=== PATIENT | female | born 1965 | race American Indian/Alaskan Native ===

== ENCOUNTER 2017-05-17 21:27 | Emergency (ER) | payer OTHER ==
[2017-05-17 21:30] VITALS: BMI 29.9
--- NOTE | 2017-05-17 21:39 | ED PDOC ---
Arrival/HPI - General Time Seen by Provider: 05/17/17 21:30 Historian: Patient - History of Present Illness Narrative History of Present Illness (Text): 05/17/17 21:36 A 51 year old female/male, whose past medical history includes lupus and MS, presents to the emergency department complaining of dizziness and weakness. Patient reports dizziness as room-spinning sensation. Notes also experiencing sharp head pain "popping" sensation. Patient denies any vomiting, or any other complaints. Also, patient mentions not having taken any medications for dizziness. No PMD Past Medical History - Provider Review Nursing Documentation Reviewed: Yes Family/Social History - Physician Review Nursing Documentation Reviewed: Yes Family/Social History: No Known Family HX Allergies/Home Meds Allergies/Adverse Reactions: Allergies No Known Allergies Allergy (Verified 05/17/17 21:40) Home Medications: Home Meds Medication Instructions Recorded Confirmed Hydroxychloroquine Sulfate 200 mg PO BID 05/17/17 05/17/17 [Plaquenil] Pantoprazole [Protonix] 40 mg PO DAILY 05/17/17 05/17/17 Pregabalin [Lyrica] 200 mg PO BID 05/17/17 05/17/17 Valsartan/Hydrochlorothiazide 300 mg PO DAILY 05/17/17 05/17/17 [Diovan Hct 320-25 mg Tablet] tiZANidine [Zanaflex] 4 mg PO DAILY 05/17/17 05/17/17 Review of Systems - Physician Review All systems were reviewed & negative as marked: Yes - Review of Systems Constitutional: Fatigue, Other (weakness) Gastrointestinal: absent: Vomiting Musculoskeletal: Other (sharp head pain "popping" sensation) Neurological: Dizziness (room-spinning) Physical Exam Mental Status: Positive for: Alert and Oriented X 3 - Systems Exam Head: Present: Atraumatic, Normocephalic Pupils: Present: PERRL Extroacular Muscles: Present: EOMI, Other (left gaze, patient's symptoms of vertigo are reproduced.) Conjunctiva: Present: Normal Mouth: Present: Moist Mucous Membranes Neck: Present: Normal Range of Motion Respiratory/Chest: Present: Clear to Auscultation, Good Air Exchange. No: Respiratory Distress, Accessory Muscle Use Cardiovascular: Present: Regular Rate and Rhythm, Normal S1, S2. No: Murmurs Abdomen: Present: Normal Bowel Sounds. No: Tenderness, Distention, Peritoneal Signs Back: Present: Normal Inspection Upper Extremity: Present: Normal Inspection. No: Cyanosis, Edema Lower Extremity: Present: Normal Inspection, Other (relfexes equal b/l). No: Edema Neurological: Present: GCS=15, CN II-XII Intact, Speech Normal, Other (no focal deficits) Skin: Present: Warm, Dry, Normal Color. No: Rashes Psychiatric: Present: Alert, Oriented x 3, Normal Insight, Normal Concentration Medical Decision Making ED Course and Treatment: 05/17/17 21:39 Impression: 51 year old female with dizziness and weakness. Plan: -- Reassess and disposition Progress Notes: - Lab Interpretations Lab Results: 05/17/17 22:00 05/17/17 22:00 Lab Results 05/17/17 22:00: Sodium 143, Potassium 3.4 L, Chloride 108 H, Carbon Dioxide 23, Anion Gap 16, BUN 10, Creatinine 0.8, Est GFR ( Amer) > 60, Est GFR (Non- Af Amer) > 60, Random Glucose 118 H, Calcium 10.4, Total Bilirubin 0.7, AST 49 H , ALT 54, Alkaline Phosphatase 91, Total Protein 7.0, Albumin 4.1, Globulin 2.9 , Albumin/Globulin Ratio 1.4 05/17/17 22:00: WBC 8.2, RBC 4.32, Hgb 12.0, Hct 37.5, MCV 86.8, MCH 27.8, MCHC 32.0, RDW 13.2, Plt Count 276, MPV 11.8 H, Gran % 36.5 L, Lymph % (Auto) 52.1 H , [place] % (Auto) 5.6, Eos % (Auto) 4.7, Baso % (Auto) 1.1, Gran # 3.01, Lymph # ( Auto) 4.3 H, [place] # (Auto) 0.5, Eos # (Auto) 0.4, Baso # (Auto) 0.09 - Medication Orders Current Medication Orders: Potassium Chloride (Klor-Con 10) 10 meq PO STAT STA Stop: 05/17/17 22:35 Discontinued Medications Meclizine HCl (Antivert) 25 mg PO STAT STA Stop: 05/17/17 21:43 Last Admin: 05/17/17 21:47 Dose: 25 mg - Scribe Statement The provider has reviewed the documentation as recorded by the Elly Mota Provider Vernibe Attestation: All medical record entries made by the Elly were at my direction and personally dictated by me. I have reviewed the chart and agree that the record accurately reflects my personal performance of the history, physical exam, medical decision making, and the department course for this patient. I have also personally directed, reviewed, and agree with the discharge instructions and disposition. Disposition/Present on Arrival - Present on Arrival Any Indicators Present on Arrival: No History of DVT/PE: No History of Uncontrolled Diabetes: No Urinary Catheter: No History of Decub. Ulcer: No - Disposition Have Diagnosis and Disposition been Completed?: Yes Diagnosis: Vertigo, Multiple sclerosis Disposition: HOME/ ROUTINE Disposition Time: 22:45 Patient Plan: Discharge Condition: IMPROVED Prescriptions: Meclizine [Meclizine*] 25 mg PO Q6 PRN #20 tab PRN Reason: Dizziness Forms: [employer] ([place]), [employer] ([place]), WORK NOTE
[2017-05-17 22:21] LABS: BASO # 0.09 K/mm3 (0.0-2.0); BASO % 1.1 % (0.0-3.0); EOS # 0.4 (0.0-0.7); EOS % 4.7 % (1.5-5.0); GRAN # 3.01 (1.4-6.5); GRAN % 36.5 % (50.0-68.0); LYMPH # 4.3 (1.2-3.4); LYMPH % 52.1 % (22.0-35.0); MEAN CELL VOLUME 86.8 fl (80.0-105.0); MEAN CORPUSCULAR HEMOGLOBIN 27.8 pg (25.0-35.0); MEAN PLATELET VOLUME 11.8 fl (7.0-11.0); MONO # 0.5 (0.1-0.6); MONO % 5.6 % (1.0-6.0); RBC 4.32 10^6/uL (3.5-6.1); RED CELL DISTRIBUTION WIDTH 13.2 % (11.5-14.5); WHITE BLOOD COUNT 8.2 10^3/ul (4.5-11.0)
[2017-05-17 22:29] LABS: ALB/GLOB RATIO 1.4 (1.1-1.8); ALBUMIN 4.1 g/dL (3.0-4.8); ALT/SGPT 54 U/L (7-56); AST/SGOT 49 U/L (14-36); BLOOD UREA NITROGEN 10 mg/dL (7-21); CALCIUM 10.4 mg/dL (8.4-10.5); GFR AFRICAN-AMERICAN > 60; GFR NON-AFRICAN AMERICAN > 60
[2017-05-17] MEDS ORDERED: Potassium Chloride 10 mEq ER Tab PO STA (22:34)
[2017-05-17 23:28] VITALS: BP 120/86; PULSE 66; RESP 16; TEMP 98.1; O2SAT 99
== END 2017-05-17 23:00 | disposition home or self-care (01) ==
LOC: ED 21:27
DX: G35 Multiple sclerosis (principal); R42 Dizziness and giddiness

== ENCOUNTER 2017-10-01 15:52 | Inpatient (IN) | payer OTHER ==
[2017-10-01 16:22] VITALS: BMI 26.8
[2017-10-01] MEDS ORDERED: Sodium Chloride 0.9% 1,000 ML IV STA (16:29)
[2017-10-01] MEDS ORDERED: Morphine 2 mg/ml ISec IVP STA (16:29)
[2017-10-01] MEDS ORDERED: Famotidine 20mg/50ml 20 MG/50 ML BAG IVPB STA (16:29)
--- NOTE | 2017-10-01 16:32 | ED PDOC ---
Arrival/HPI - General Chief Complaint: Pain, Chronic Time Seen by Provider: 10/01/17 16:00 Historian: Patient - History of Present Illness Narrative History of Present Illness (Text): 10/01/17 16:26 51 year old female, whose past medical history includes MS/lupus, who presents to the emergency department complaining of gradually, worsening joint/body aches and pain since this morning. Patient notes severe abdominal cramps as well and experienced 6 episodes of vomiting with persistent nausea. Patient had visited Dr. Moss's office for evaluation and was subsequently sent to the [place] emergency department for further eval/exam today. pt does not know if the pain she is currently experiencing is from Lupus flare or MS exacerbation as they are somewhat similiar; pt's last exacerbation was 2 years ago; pt states no fever/chills, + sweats, no cp/sob/palpitations, pt denied urinary/ bowel changes, no rashes, no fall/trauma/sick contact, no travel; pt denied LOC ; pt is here for further eval; pt's without other complaints. Patient receives 1000mg SOLU-Medrol injections every two months for patient's lupus prescribed from Dr. Flores ? from [place]. Patient has not taken MS medication for a year due to insurance issues. pt is here for further eval. PMD: Isa Neurology: Dr. Cruz Rheumatology: Dr Flores? (at [place]) pt lives with family Patient is right hand dominant Time/Duration: Prior to Arrival, Other (since this morning) Symptom Onset: Gradual Symptom Course: Worsening Severity Level: 10, Severe Activities at Onset: Light Context: Home Past Medical History - Provider Review Nursing Documentation Reviewed: Yes - Travel History Have you recently traveled outside [place] w/in the past 3 mons?: No - Past History Past History: Non-Contributing - Infectious Disease Hx of Infectious Diseases: None - Reproductive Currently : No - Cardiac Hx Hypertension: Yes - Neurological Hx Dizziness: Yes Hx Multiple Sclerosis: Yes - Endocrine/Metabolic Hx Systemic Lupus Erythematosus: Yes - Musculoskeletal/Rheumatological Hx Osteoarthritis: Yes - Psychiatric Hx Substance Use: No - Surgical History Hx Tubal Ligation: Yes - Anesthesia Hx Anesthesia: No Hx Anesthesia Reactions: No Hx Malignant Hyperthermia: No Family/Social History - Physician Review Nursing Documentation Reviewed: Yes Family/Social History: Unknown Family HX Smoking Status: Heavy Smoker > 10 Cigarettes Daily Hx Alcohol Use: No Hx Substance Use: No Hx Substance Use Treatment: No Allergies/Home Meds Allergies/Adverse Reactions: Allergies No Known Allergies Allergy (Verified 10/01/17 16:27) Home Medications: Home Meds Medication Instructions Recorded Confirmed Hydroxychloroquine Sulfate 200 mg PO BID 05/17/17 05/17/17 [Plaquenil] Pantoprazole [Protonix] 40 mg PO DAILY 05/17/17 05/17/17 Pregabalin [Lyrica] 200 mg PO BID 05/17/17 05/17/17 Valsartan/Hydrochlorothiazide 300 mg PO DAILY 05/17/17 05/17/17 [Diovan Hct 320-25 mg Tablet] tiZANidine [Zanaflex] 4 mg PO DAILY 05/17/17 05/17/17 Review of Systems - Physician Review All systems were reviewed & negative as marked: Yes - Review of Systems Constitutional: Normal Eyes: Normal ENT: Normal Respiratory: Normal. absent: SOB, Cough Cardiovascular: Normal. absent: Chest Pain Gastrointestinal: Abdominal Pain, Vomiting. absent: Diarrhea Genitourinary Female: Normal, Vaginal Discharge. absent: Dysuria, Frequency Musculoskeletal: Arthralgias, Other (body aches) Skin: Normal. absent: Rash Neurological: Normal. absent: Headache, Dizziness Endocrine: Normal Hemo/Lymphatic: Normal Psychiatric: Normal Physical Exam - Physical Exam Narrative Physical Exam (Text): 10/01/17 16:33 General: alert/awake, GCS = 15, oriented x 3, resting in bed, uncomfortable, cooperative, interactive; moderate distress due to pain Head: NC/AT EYE: PERRLA, EOMI, sclera anicteric, no nystagmus, no photophobia; visual field intact b/l Facial: WNL Oral: uvula/tongue are midline, no exudate/lesions, no drooling/stridor, no dysphonia; intact dentitions; moist oral mucosa NECK: intact ROM, no midline tenderness, no nuchal rigidity, no meningeal signs ; no step off Chest: CTA b/l, no w/r/r; no tachypenia, no accessory muscle use noted Chest Wall: no crepitus, no lesions, no gross deformities, no focal tenderness Cardiac: +S1, +S2, no m/r/r, no tachycardia Abdominal: +BS, soft/nd/nt, well nourished patient; no masses/rebound/guarding/ rigidity; no ordoñez's sign, no mcburney's point tenderness Extremities: intact ROM, strength 5/5 grossly intact in all limbs, neurovasc intact b/l; reflex +2/2; no rupert's sign b/l; no pitting edema/leg swellings noted; diffuse large-joint palpable/reproducible tenderness, no crepitus, no gross deformities noted BACK: no step off, no midline tenderness, NO crepitus, no gross deformities noted; Intact ROM SKIN: cap refill < 1 sec, no ulcerations, no petechiae, no rashes; no gross pallor NEURO: CNII-XII WNL, no facial asymmetries, no slurr speech, oriented x 3 NIH stroke scale ~ 0 Psych: normal insight, normal affect; follows command with ease Vital Signs Reviewed: Yes Vital Signs Temp Pulse Resp BP Pulse Ox 10/01/17 18:00 79 18 148/78 98 10/01/17 16:21 98.6 F 84 18 152/82 H 98 Temperature: Afebrile Blood Pressure: Hypertensive Pulse: Regular Respiratory Rate: Normal Appearance: Positive for: Well-Appearing, Non-Toxic, Uncomfortable Pain Distress: Moderate Mental Status: Positive for: Alert and Oriented X 3 - Systems Exam Head: Present: Atraumatic, Normocephalic Medical Decision Making ED Course and Treatment: 10/01/17 16:35 Impression: 51 year old male presents to the emergency department complaining of joint/ body aches and pain since this morning. likely exacerbation (MS vs Lupus, or combination of the 2); unlikely infectious Plan: -- VBG -- Labs -- Chest X-ray -- EKG -- Urinalysis -- Toradol -- Morphine -- Zofran -- Pepcid -- Sodoium Chloride -- Reassess and disposition Progress Notes: 10/01/17 16:[address] Cruz, made aware of pt's medical complaints and Emergency department mgt/txt/dx. Suggests administering 1 gram of SOLU-Medrol to pt and re-evaluate pt after medication. If pt's symptoms improve, pt can follow up as outpatient. If pt's symptoms remain the same or worsen, hospitalization/treatment/monitor will be needed/recommended. 10/01/17 18:45 Pt continues to have discomfort and pain throughout. Pt states she requires further pain control. 10/01/17 18:[address] Moss, made aware of pt's medical complaints, suggests that patient may be narcotic dependent; States if pt were to leave as she wants to, pt will be leaving AMA, he will then see pt in his office in 2 days for follow up. 10/01/17 18:57 Pt states she changed her mind and does not want to sign out AMA. Pt states she would prefer to stay in the hospital. Pt continues to have diffuse joint/body aches and pains. 10/01/17 19:[address] Moss again, made aware, agrees with admission 10/01/17 19:49 Case discussed with medical chief technician for Dr. Moss, who is made aware and will evaluate patient in the Emergency department pt is made aware of her medical results agrees with admission Re-evaluation Time: 19:30 Reassessment Condition: Unchanged - Lab Interpretations Lab Results: 10/01/17 17:15 10/01/17 17:30 Lab Results 10/01/17 17:30: C-React Prot High Sens Pending, TSH 3rd Generation 0.93 10/01/17 17:30: Sodium 144, Chloride 106, Potassium 3.8, Carbon Dioxide 27, Anion Gap 15, BUN 11, Creatinine 0.6 L, Est GFR ( Amer) > 60, Est GFR ( Non-Af Amer) > 60, Random Glucose 88, Calcium 10.0, Phosphorus 4.0, Magnesium 2.1, Total Bilirubin 0.5, AST 27, ALT 28, Alkaline Phosphatase 117, Troponin I < 0.01, NT-Pro-B Natriuret Pep 37.6, Total Protein 7.1, Albumin 4.1, Globulin 3.0, Albumin/Globulin Ratio 1.4, Lipase 42 10/01/17 17:30: pO2 69 H, VBG pH 7.38, VBG pCO2 46.0, VBG HCO3 27.2, VBG Total CO2 28.6 H, VBG O2 Sat (Calc) 96.5 H, VBG Base Excess 1.5, VBG Potassium 4.2, Sodium 140.0, Chloride 108.0 H, Glucose 86, Lactate 1.0, FiO2 21.0, Venous Blood Potassium 4.2 10/01/17 17:30: PT 12.6 H, INR 1.10 H, APTT 33.4 10/01/17 17:15: WBC 8.9, RBC 4.31, Hgb 12.1, Hct 36.8, MCV 85.4, MCH 28.1, MCHC 32.9, RDW 13.2, Plt Count 285, MPV 12.7 H, Gran % 54.5, Lymph % (Auto) 36.3 H, [place] % (Auto) 6.7 H, Eos % (Auto) 1.9, Baso % (Auto) 0.6, Gran # 4.83, Lymph # ( Auto) 3.2, [place] # (Auto) 0.6, Eos # (Auto) 0.2, Baso # (Auto) 0.05, ESR 10 I have reviewed the lab results: Yes Interpretation: All labs normal - RAD Interpretation Narrative RAD Interpretations (Text): 10/01/17 17:45 Chest X-ray reviewed, shows: LUNGS: No active pulmonary disease. PLEURA: No significant pleural effusion identified, no pneumothorax apparent. CARDIOVASCULAR: Normal. OSSEOUS STRUCTURES: No significant abnormalities. VISUALIZED UPPER ABDOMEN: Normal. OTHER FINDINGS: None. IMPRESSION: No acute cardiopulmonary disease appreciated. Radiology Orders: 10/01/17 16:27 CHEST PORTABLE [RAD] Stat Tube Mounter: Radiologist - EKG Interpretation EKG Interpretation (Text): 10/01/17 21:03 NSR at 85 bpm, normal axis, no ectopy, no st-t changes, BORDERLINE EKG; unchanged compare with old ekg 05/2017 Interpreted by ED Physician: Yes Type: 12 lead EKG Comparison: Similar to previous EKG - Medication Orders Current Medication Orders: Docusate Sodium (Colace) 100 mg PO TID YARY Enoxaparin Sodium (Lovenox) 30 mg SC DAILY YARY PRN Reason: Protocol Hydrochlorothiazide (Hydrodiuril) 25 mg PO DAILY YARY Hydroxychloroquine Sulfate (Plaquenil) 200 mg PO BID YARY PRN Reason: Protocol Sodium Chloride (Sodium Chloride 0.45%) 1,000 mls @ 80 mls/hr IV .[id number] YARY Ondansetron HCl (Zofran Inj) 4 mg IVP Q6 PRN PRN Reason: Nausea/Vomiting Pantoprazole Sodium (Protonix Inj) 40 mg IVP DAILY YARY Polyethylene Glycol (Miralax) 17 gm PO Q12 YARY Pregabalin (Lyrica) 200 mg PO BID YARY Valsartan (Diovan) 320 mg PO DAILY YARY Discontinued Medications Hydromorphone HCl (Dilaudid) 1 mg IVP STAT STA Stop: 10/01/17 18:50 Last Admin: 10/01/17 19:01 Dose: 1 mg MAR Pain Assessment Document 10/01/17 19:01 EQ (Rec: 10/01/17 19:02 EQ [facility] Pain Reassessment Is this a pain reassessment? Yes Sleep Is patient sleeping during reassessment? No Presence of Pain Presence of Pain Yes Pain Scale Used Pain Scale Used Numeric IVP Administration Document 10/01/17 19:01 EQ (Rec: 10/01/17 19:02 EQ [facility] Charges for Administration # of IVP Administrations 1 Famotidine (Pepcid 20mg/50ml Premix) 20 mg in 50 mls @ 100 mls/hr IVPB STAT STA Stop: 10/01/17 16:58 Last Admin: 10/01/17 16:50 Dose: 100 mls/hr eMAR Start Stop Document 10/01/17 16:50 EQ (Rec: 10/01/17 16:50 EQ [facility] Intravenous Solution Start Date 10/01/17 Start Time 16:50 Sodium Chloride (Sodium Chloride 0.9%) 1,000 mls @ 999 mls/hr IV .Q1H1M STA Stop: 10/01/17 17:29 Last Admin: 10/01/17 16:49 Dose: 999 mls/hr eMAR Start Stop Document 10/01/17 16:49 EQ (Rec: 10/01/17 16:49 EQ [facility] Intravenous Solution Start Date 10/01/17 Start Time 16:49 Methylprednisolone 1,000 mg/ (Sodium Chloride) 100 mls @ 200 mls/hr IVPB ONCE ONE Stop: 10/01/17 16:42 Last Admin: 10/01/17 18:05 Dose: 200 mls/hr eMAR Start Stop Document 10/01/17 18:05 EQ (Rec: 10/01/17 18:05 EQ [facility] Intravenous Solution Start Date 10/01/17 Start Time 18:05 Ketorolac Tromethamine (Toradol) 30 mg IVP STAT STA Stop: 10/01/17 16:30 Last Admin: 10/01/17 16:50 Dose: 30 mg MAR Pain Assessment Document 10/01/17 16:50 EQ (Rec: 10/01/17 16:50 EQ [facility] Pain Reassessment Is this a pain reassessment? No Sleep Is patient sleeping during reassessment? No Presence of Pain Presence of Pain Yes IVP Administration Document 10/01/17 16:50 EQ (Rec: 10/01/17 16:50 EQ [facility] Charges for Administration # of IVP Administrations 1 Morphine Sulfate (Morphine) 4 mg IVP STAT STA Stop: 10/01/17 16:30 Last Admin: 10/01/17 16:51 Dose: 4 mg MAR Pain Assessment Document 10/01/17 16:51 EQ (Rec: 10/01/17 16:51 EQ [facility] Pain Reassessment Is this a pain reassessment? No Sleep Is patient sleeping during reassessment? No Presence of Pain Presence of Pain Yes Pain Scale Used Pain Scale Used Numeric IVP Administration Document 10/01/17 16:51 EQ (Rec: 10/01/17 16:51 EQ [facility] Charges for Administration # of IVP Administrations 1 Ondansetron HCl (Zofran Inj) 4 mg IVP STAT STA Stop: 10/01/17 16:30 Last Admin: 10/01/17 16:51 Dose: 4 mg IVP Administration Document 10/01/17 16:51 EQ (Rec: 10/01/17 16:51 EQ [facility] Charges for Administration # of IVP Administrations 1 - Scribe Statement The provider has reviewed the documentation as recorded by the Scribmelissa Gómez All medical record entries made by the Scribe were at my direction and personally dictated by me. I have reviewed the chart and agree that the record accurately reflects my personal performance of the history, physical exam, medical decision making, and the department course for this patient. I have also personally directed, reviewed, and agree with the discharge instructions and disposition. Disposition/Present on Arrival - Present on Arrival Any Indicators Present on Arrival: No History of DVT/PE: No History of Uncontrolled Diabetes: No Urinary Catheter: No History of Decub. Ulcer: No History Surgical Site Infection Following: None - Disposition Have Diagnosis and Disposition been Completed?: Yes Diagnosis: Joint pain, Intractable pain, Exacerbation of multiple sclerosis Disposition: HOSPITALIZED Disposition Time: 19:55 Patient Plan: Admission Condition: STABLE
--- NOTE | 2017-10-01 17:39 | RAD ---
HISTORY: weakness COMPARISON: No prior. FINDINGS: LUNGS: No active pulmonary disease. PLEURA: No significant pleural effusion identified, no pneumothorax apparent. CARDIOVASCULAR: Normal. OSSEOUS STRUCTURES: No significant abnormalities. VISUALIZED UPPER ABDOMEN: Normal. OTHER FINDINGS: None. IMPRESSION: No acute cardiopulmonary disease appreciated.
[2017-10-01 17:53] LABS: VENOUS BLOOD GAS BASE EXCESS 1.5 mmol/L (0.0-2.0); VENOUS BLOOD GAS PO2 69 mm/Hg (30-55); VENOUS BLOOD PH 7.38 (7.32-7.43)
[2017-10-01 17:57] LABS: BASO # 0.05 K/mm3 (0.0-2.0); BASO % 0.6 % (0.0-3.0); EOS # 0.2 (0.0-0.7); EOS % 1.9 % (1.5-5.0); GRAN # 4.83 (1.4-6.5); GRAN % 54.5 % (50.0-68.0); HEMOGLOBIN 12.1 g/dL (12.0-16.0); LYMPH # 3.2 (1.2-3.4); LYMPH % 36.3 % (22.0-35.0); MEAN CELL VOLUME 85.4 fl (80.0-105.0); MEAN CORPUSCULAR HEMOGLOBIN 28.1 pg (25.0-35.0); MEAN CORPUSCULAR HGB CONC 32.9 g/dl (31.0-37.0); MEAN PLATELET VOLUME 12.7 fl (7.0-11.0); MONO # 0.6 (0.1-0.6); MONO % 6.7 % (1.0-6.0); RBC 4.31 10^6/uL (3.5-6.1); RED CELL DISTRIBUTION WIDTH 13.2 % (11.5-14.5); WHITE BLOOD COUNT 8.9 10^3/ul (4.5-11.0)
[2017-10-01 18:02] LABS: ALB/GLOB RATIO 1.4 (1.1-1.8); ALBUMIN 4.1 g/dL (3.0-4.8); ALT/SGPT 28 U/L (7-56); AST/SGOT 27 U/L (14-36); BLOOD UREA NITROGEN 11 mg/dL (7-21); GFR AFRICAN-AMERICAN > 60; GFR NON-AFRICAN AMERICAN > 60; LIPASE 42 U/L (23-300)
[2017-10-01 18:13] LABS: B-TYPE NATRIURETIC PEPTIDE 37.6 pg/mL (0-450); TROPONIN I < 0.01 ng/mL
[2017-10-01 18:23] LABS: INR 1.1 (0.93-1.08); PARTIAL THROMBOPLASTIN TIME 33.4 Seconds (25.1-36.5); PROTHROMBIN TIME 12.6 SECONDS (9.4-12.5)
[2017-10-01] MEDS ORDERED: HYDROmorphone 0.5 mg/0.5 ml ISec IVP STA (18:49)
--- NOTE | 2017-10-01 21:04 | CP.PCM.HP ---
History of Present Illness - History of Present Illness History of Present Illness: 51 year old female with a past medical history of Multiple sclerosis, hypertension, osteopenia, and hypertension who comes in today complaining of myalgias, spasms and six episodes of vomiting for the past day. The patient describes the pain in her muscles as throbbing in nature that is consistent. The patient reports going to her PMD Dr. Moss earlier today who recommended she be transferred to the emergency room for further workup. The patient's last Lupus flare up was 2 years ago. She denies any chest pain, fevers, chills , changes in vision, dizziness, syncopal episodes, changes in diet, recent travel, or any other complaints. PMD: Dr. Moss Neurologist: Dr. Cruz Systems Librarian: Dr. Boggs Past medical history: hypertension, MS, Lupus, hypertension, osteopenia Medications: Plaquenil 200mg BID, Lyrica 200mg BID, Norvasc 10mg PO Daily, Diovan 320 mg Daily Allergies: Denies Surgical history: Tubal ligation, uterine ablation, removal right ovarian cyst Social history: Denies smoking, drinking, or illicit drug use. Live in [place]. Works at [employer]. Present on Admission - Present on Admission Any Indicators Present on Admission: No Review of Systems - Constitutional Constitutional: absent: Daytime Sleepiness, Headache, Increased Appetite, Sleep Apnea, Weight Gain - EENT Eyes: Blurred Vision. absent: Discharge, Loss of Peripheral Vision, Sees Flashes, Loss of Vision Ears: absent: Ear Discharge, Dizziness Nose/Mouth/Throat: absent: Nasal Congestion, Post Nasal Drip, Dental Pain, Mouth Lesions, Throat Swelling - Cardiovascular Cardiovascular: absent: Chest Pain, Diaphoresis, Irregular Heart Rhythm, Leg Edema, Leg Ulcers, Slow Heart Rate - Respiratory Respiratory: absent: Cough, Dyspnea, Hemoptysis, Pain on Inspiration, Excessive Mucous Production, Change in Mucous Color - Gastrointestinal Gastrointestinal: Nausea, Vomiting. absent: Belching, Bloating, Excessive Flatus, Hematemesis, Temesmus - Musculoskeletal Musculoskeletal: Arthralgias, Muscle Cramps, Myalgias. absent: Abnormal Gait, Atrophy, Back Pain, Limited Range of Motion, Neck Pain, Numbness - Integumentary Integumentary: absent: Alopecia, Bleeding Lesions, Skin Pain - Neurological Neurological: absent: Abnormal Hearing, Burning Sensations, Dizziness, Numbness , Lack of Coordination, Restless Legs, Vertigo, Weakness - Psychiatric Psychiatric: absent: Panic Attacks, Paranoia - Hematologic/Lymphatic Hematologic: absent: Easy Bleeding, Easy Bruising Past Patient History - Infectious Disease Hx of Infectious Diseases: None - Past Social History Smoking Status: Heavy Smoker > 10 Cigarettes Daily - CARDIAC Hx Hypertension: Yes - NEUROLOGICAL Hx Dizziness: Yes Hx Multiple Sclerosis: Yes - ENDOCRINE/METABOLIC Hx Systemic Lupus Erythematosus: Yes - MUSCULOSKELETAL/RHEUMATOLOGICAL Hx Osteoarthritis: Yes - PSYCHIATRIC Hx Substance Use: No - SURGICAL HISTORY Hx Tubal Ligation: Yes - ANESTHESIA Hx Anesthesia: No Hx Anesthesia Reactions: No Hx Malignant Hyperthermia: No Meds Allergies/Adverse Reactions: Allergies Allergy/AdvReac Type Severity Reaction Status Date / Time No Known Allergies Allergy Verified 10/01/17 23:34 Physical Exam - Head Exam Head Exam: ATRAUMATIC, NORMAL INSPECTION, NORMOCEPHALIC - Eye Exam Eye Exam: EOMI, Normal appearance, PERRL. absent: Nystagmus, Periorbital tenderness Pupil Exam: NORMAL ACCOMODATION, PERRL - ENT Exam ENT Exam: Mucous Membranes Moist, Normal Oropharynx - Respiratory Exam Respiratory Exam: Clear to Auscultation Bilateral, NORMAL BREATHING PATTERN. absent: Decreased Breath Sounds, Rales, Rhonchi - Cardiovascular Exam Cardiovascular Exam: REGULAR RHYTHM, +S1, +S2 - GI/Abdominal Exam GI & Abdominal Exam: Normal Bowel Sounds, Soft - Extremities Exam Extremities exam: Positive for: normal inspection, tenderness. Negative for: joint swelling, pedal edema Additional comments: Motor strength 5/5 in lower extremities. Motor stregth 4/5 on right upper extremity. 5/5 on left upper extremity. - Back Exam Back exam: NORMAL INSPECTION. absent: paraspinal tenderness - Neurological Exam Neurological exam: Alert, CN II-XII Intact, Oriented x3 - Psychiatric Exam Psychiatric exam: Normal Affect, Normal Mood - Skin Skin Exam: Dry, Intact, Normal Color Results - Vital Signs Recent Vital Signs: Last Vital Signs Temp 98.6 F 10/01/17 16:21 Pulse 79 10/01/17 18:00 Resp 18 10/01/17 18:00 BP 148/78 10/01/17 18:00 Pulse Ox 98 10/01/17 18:00 - Labs Result Diagrams: 10/01/17 17:15 10/01/17 17:30 Assessment & Plan - Assessment and Plan (Free Text) Assessment: 51 year old female with a history of ms, lupus, hypertension and ostopenia who is being admitted for MS exacerbation. Plan: 1.MS exacerbation -1 gram of IV Solu-medrol given in the E.D. -Neurology consulted. Help appreciated -Home medications restarted. 2. Vomiting/nausea -IV Zofran started. 3. Myalgias -Negative Lemus sign on Physical exam -Duplex l/e ordered. Will f/u with results -STAT CPK ordered .Will f/u with results -Outo of bed as tolerated. -Physical Therapy consulted. -1/2 NS @80mls/hr 4.hx of Lupus -home medications restarted 5. hx of Hypertension -home medications restarted PPX -Protonix -Lovenox Case discussed with Dr. Moss. Ramin Rayo, PGY-1
--- NOTE | 2017-10-01 22:01 | CARD ---
APPROVED REPORT EKG Measurement Heart [id number] <Conclusion> Normal sinus rhythm Normal ECG
[2017-10-01] MEDS: Sodium Chloride 0.45% 1,000 ML IV SCH (22:12)
[2017-10-01] MEDS: POLYETHYLENE GLYCOL 3350 17 GM/Dose PACKET PO SCH (23:30)
[2017-10-01] MEDS ORDERED: Morphine 2 mg/2 mL syringe IVP STA (23:48)
[2017-10-02 06:27] LABS: BASO # 0.01 K/mm3 (0.0-2.0); BASO % 0.2 % (0.0-3.0); GRAN # 3.9 (1.4-6.5); GRAN % 84.8 % (50.0-68.0); HEMOGLOBIN 11.2 g/dL (12.0-16.0); LYMPH # 0.7 (1.2-3.4); LYMPH % 14.6 % (22.0-35.0); MEAN CORPUSCULAR HEMOGLOBIN 27.5 pg (25.0-35.0); MEAN CORPUSCULAR HGB CONC 32.4 g/dl (31.0-37.0); MEAN PLATELET VOLUME 10.8 fl (7.0-11.0); MONO % 0.4 % (1.0-6.0); RBC 4.07 10^6/uL (3.5-6.1); RED CELL DISTRIBUTION WIDTH 13.1 % (11.5-14.5); WHITE BLOOD COUNT 4.6 10^3/ul (4.5-11.0)
[2017-10-02 07:26] LABS: ALB/GLOB RATIO 1.3 (1.1-1.8); ALBUMIN 3.7 g/dL (3.0-4.8); ALT/SGPT 20 U/L (7-56); AST/SGOT 19 U/L (14-36); BILIRUBIN,DIRECT 0.3 mg/dL (0.0-0.4); BLOOD UREA NITROGEN 13 mg/dL (7-21); CALCIUM 9.4 mg/dL (8.4-10.5); GFR AFRICAN-AMERICAN > 60; GFR NON-AFRICAN AMERICAN > 60
--- NOTE | 2017-10-02 07:47 | CP.PCM.PN ---
Subjective - Date & Time of Evaluation Date of Evaluation: 10/02/17 Time of Evaluation: 07:42 - Subjective Subjective: Patient seen and examined at bedside. Patient admits to improvement in pain symptoms from previous day. Patient states she is at baseline at this time. Denies chest pain, shortness of breath, nausea, vomiting, diarrhea, fever, changes in vision, numbness, weakness. Objective - Vital Signs/Intake and Output Vital Signs (last 24 hours): Temp Pulse Resp BP Pulse Ox 98.2 F 75 18 138/72 100 10/01/17 23:44 10/01/17 23:44 10/01/17 23:44 10/01/17 23:44 10/01/17 23:00 Intake and Output: 10/02/17 10/02/17 06:59 18:59 Intake Total 360 Balance 360 - Medications Medications: Current Medications Docusate Sodium (Colace) 100 mg PO TID [facility] Enoxaparin Sodium (Lovenox) 30 mg SC DAILY [facility] PRN Reason: Protocol Hydroxychloroquine Sulfate (Plaquenil) 200 mg PO BID [facility] PRN Reason: Protocol Sodium Chloride (Sodium Chloride 0.45%) 1,000 mls @ 80 mls/hr IV .[id number] [facility] Last Admin: 10/01/17 22:12 Dose: 80 mls/hr Ondansetron HCl (Zofran Inj) 4 mg IVP Q4H PRN PRN Reason: Nausea/Vomiting Pantoprazole Sodium (Protonix Inj) 40 mg IVP DAILY [facility] Polyethylene Glycol (Miralax) 17 gm PO Q12 [facility] Last Admin: 10/01/17 23:30 Dose: 17 gm Pregabalin (Lyrica) 200 mg PO BID [facility] Tizanidine HCl (Zanaflex) 4 mg PO DAILY [facility] Valsartan (Diovan) 320 mg PO DAILY [facility] - Labs Labs: 10/02/17 06:00 10/02/17 06:00 PT 12.6 SECONDS (9.4-12.5) H 10/01/17 17:30 INR 1.10 (0.93-1.08) H 10/01/17 17:30 APTT 33.4 Seconds (25.1-36.5) 10/01/17 17:30 - Constitutional Appears: Non-toxic, No Acute Distress - Head Exam Head Exam: ATRAUMATIC, NORMAL INSPECTION, NORMOCEPHALIC - Eye Exam Eye Exam: EOMI, Normal appearance - ENT Exam ENT Exam: Mucous Membranes Moist, Normal Exam - Respiratory Exam Respiratory Exam: Clear to Ausculation Bilateral, NORMAL BREATHING PATTERN - Cardiovascular Exam Cardiovascular Exam: RRR, +S1, +S2 - GI/Abdominal Exam GI & Abdominal Exam: Soft, Normal Bowel Sounds. absent: Tenderness - Extremities Exam Extremities Exam: Normal Inspection. absent: Calf Tenderness, Pedal Edema - Neurological Exam Neurological Exam: Alert, Awake, CN II-XII Intact, Oriented x3 - Psychiatric Exam Psychiatric exam: Normal Affect, Normal Mood - Skin Skin Exam: Intact, Normal Color, Warm Assessment and Plan - Assessment and Plan (Free Text) Plan: 51 year old female with a history of ms, lupus, hypertension and osteopenia presents for MS exacerbation. Patient doing well today after solumedrol, currently at baseline. 1.MS exacerbation Solumedrol 1 gram given yesterday, Additional dose given today 1/2 NS @ 80 Obstructive series Neuro consulted, Dr. Cruz 2. Arthralgias Pain intermittent, at baseline Physical Therapy 3.hx of Lupus Continue home medications 5. hx of Hypertension Continue home medications PPX Protonix Lovenox Fco, PGY-2
[2017-10-02] MEDS: Enoxaparin 30 mg Syringe SC SCH (09:15)
[2017-10-02] MEDS: POLYETHYLENE GLYCOL 3350 17 GM/Dose PACKET PO SCH ×2 (09:15→22:36)
--- NOTE | 2017-10-02 09:37 | US ---
HISTORY: Leg pain and swelling. Evaluate for DVT PHYSICIAN(S): Lenin Freire MD. TECHNIQUE: Duplex sonography and color-flow Doppler with graded compression were used to evaluate the deep venous systems of both lower extremities. FINDINGS: The visualized deep venous systems of both lower extremities are sonographically normal and compressible. Normal wave forms and augmentation are seen. There is no sonographic evidence for deep venous thrombosis in the visualized segments of both lower extremities. IMPRESSION: No sonographic evidence for deep venous thrombosis in the visualized segments of both lower extremities.
--- NOTE | 2017-10-02 13:08 | RAD ---
HISTORY: Possible bowel obstruction COMPARISON: No prior. FINDINGS: BOWEL: No evidence of acute mechanical bowel obstruction. . Moderate amount of stool seen within the cecum and at ascending colon suggesting mild fecal retention. Air is present throughout most of the colon as well. BONES: Mild degenerative spondylosis of both hip joints. OTHER FINDINGS: Note made of multiple rounded varying sized calcifications overlying the inferior true pelvis consistent with uterine fibroids. IMPRESSION: Moderate amount stool seen within the cecum ascending colon suggesting mild fecal retention. No evidence of acute mechanical bowel obstruction.
[2017-10-02 14:16] LABS: URINE BILIRUBIN NEGATIVE (NEGATIVE); URINE BLOOD NEGATIVE (NEGATIVE); URINE GLUCOSE (UA) 250 mg/dL (NEGATIVE); URINE LEUKOCYTE ESTERASE NEGATIVE Leu/uL (NEGATIVE); URINE PROTEIN NEGATIVE mg/dL (<30 mg/dL)
--- NOTE | 2017-10-02 14:16 | CP.PCM.PCO ---
Physician Communication Note - Physician Communication Note Physician Communication Note: MSWIHT LUPUS FLARE. ONE MORE DOSE OF IGRM SOLUMEDROL AND HOME.
[2017-10-02 14:18] LABS: URINE APPEARANCE CLEAR (CLEAR); URINE COLOR YELLOW (YELLOW)
[2017-10-02 14:45] LABS: BARBITURATES, UR NEGATIVE (NEGATIVE)
[2017-10-02 14:46] LABS: BENZODIAZEPINES, UR NEGATIVE (NEGATIVE); OPIATES, UR POSITIVE (NEGATIVE)
[2017-10-02 14:47] LABS: PHENCYCLIDINE, UR NEGATIVE (NEGATIVE)
--- NOTE | 2017-10-02 15:04 | HP ---
HISTORY OF PRESENT ILLNESS: The patient is a 51-year-old female who was admitted through the Emergency Room initially seen in the office for nausea, vomiting, abdominal discomfort and generalized body pain. The patient started feeling extremely sick in the office and the patient was sent to the Emergency Room because of the patient's medical condition being unstable and the patient was unable to control her nausea and vomiting and was sent to the Emergency Room. From there, the patient was admitted after the patient was evaluated in the emergency room and the ER physician contacted Neurology and according to Dr. Cruz's recommendation, the patient was advised to be admitted for IV steroid therapy for exacerbation of MS. This is the addendum to the history and physical examination which was done by the medical billing clerk. IMPRESSION AND PLAN: 1. Questionable and possible acute exacerbation of multiple sclerosis. 2. Questionable intractable nausea, vomiting (resolved) and abdominal pain. 3. History of hypertension. 4. History of systemic lupus erythematosus. 5. Neuropathy. 6. Chronic pain syndrome. 7. Mild normocytic anemia. 8. Hypovitaminosis D. 9. Hypogammaglobinemia. 10. Demyelinating disease of the brain and cervical spine. 11. History of multiple sclerosis. 12. History of tubal ligation. 13. History of osteopenia. 14. History of uterine ablation. 15. History of right ovarian cyst surgery. 16. Constipation. Please refer to the detailed history and physical examination by the medical billing clerk. The patient examined. Vital signs, diagnostic data reviewed and explained to the patient. PLAN: At this time, the patient is to be admitted to [facility] for IV steroid treatment as recommended by Neurology. The patient has been ordered serial labs. The patient has been ordered obstructive series for evaluation of constipation. Neurology consultation ordered. CURRENT MEDICATIONS: Half normal saline at 80 mL an hour, Colace 100 mg three times a day, Dilaudid 0.5 mg IV every 6 hours p.r.n., Diovan 320 mg daily, Lovenox 30 mg subcu daily, Lyrica 200 twice a day, MiraLax 17 g twice a day, Plaquenil 200 twice a day, Protonix 40 mg daily. The patient is on Solu-Medrol 1000 mg one dose yesterday, one dose today as ordered by Neurology, Zanaflex 4 mg daily, Zofran 4 mg IV every 4 hours p.r.n. Incentive spirometry. Heart-healthy diet. Neuro checks. Out of bed, DUANE stockings, SCDs, physical therapy, occupational therapy ordered.. At present, the patient is to be continued on the above therapeutic intervention until further evaluation and recommendation by Neurology. Dictated and electronically signed, not read. Jace Moss MD
[2017-10-02] MEDS: HYDROmorphone 0.5 mg/0.5 ml ISec IVP PRN ×2 (17:35→21:26)
[2017-10-02] MEDS: Sodium Chloride 0.45% 1,000 ML IV SCH ×2 (17:37→23:50)
[2017-10-03] MEDS: HYDROmorphone 0.5 mg/0.5 ml ISec IVP PRN ×3 (05:17→19:42)
--- NOTE | 2017-10-03 06:03 | CON ---
DATE: 10/02/2017 HISTORY OF PRESENT ILLNESS: A 51-year-old black female with past medical history of multiple sclerosis, hypertension and lupus, and came here with the complaint of spasm in the legs, myalgia and episode of vomiting, and patient describes her muscle pain as throbbing in nature, and also complain of numbness and tingling. Patient had flare up of lupus 2 years ago, and denies any visual problem. No dizziness. No syncope. PAST MEDICAL HISTORY: Hypertension, MS, lupus. ALLERGIES: NO KNOWN DRUG ALLERGIES. SOCIAL HISTORY: Does not smoke, does not drink. REVIEW OF SYSTEMS: A 10-point review of systems was negative except cramps and muscle pain, and vomiting. PHYSICAL EXAMINATION: HEENT: Normocephalic and atraumatic. NECK: Supple. NEUROLOGIC: Alert, awake, oriented x3. No aphasia. Cranial nerves II through XII were tested. Pupils reactive. EOM intact. Visual field full. No facial asymmetry. Tongue midline. Motor examination: Moves all the extremities equally. Tone normal. Deep tendon reflexes 1+. Both plantars are downgoing. Sensory appears intact. Cerebellar, gait deferred. LABORATORY DATA: WBC 8.9, hemoglobin 12.1, hematocrit 36.8, platelet 285. Sodium 144, potassium 3.8, chloride 106, CO2 of 27, glucose 88, BUN 11, creatinine 0.6. IMPRESSION: Multiple sclerosis possibly exacerbation, lupus, hypertension. We gave her a gram of Solu-Medrol, one was given in the emergency room, one for today and tomorrow. Continue present medication. We will follow up. Yoni Cruz MD
[2017-10-03 06:33] LABS: BASO # 0.01 K/mm3 (0.0-2.0); BASO % 0.1 % (0.0-3.0); GRAN # 10.82 (1.4-6.5); GRAN % 86.9 % (50.0-68.0); HEMOGLOBIN 9.9 g/dL (12.0-16.0); LYMPH # 1.1 (1.2-3.4); LYMPH % 8.8 % (22.0-35.0); MEAN CORPUSCULAR HEMOGLOBIN 27.3 pg (25.0-35.0); MEAN CORPUSCULAR HGB CONC 31.7 g/dl (31.0-37.0); MONO # 0.5 (0.1-0.6); MONO % 4.2 % (1.0-6.0); PLATELET COUNT 262 10^3/uL (120.0-450.0); RBC 3.63 10^6/uL (3.5-6.1); RED CELL DISTRIBUTION WIDTH 13.3 % (11.5-14.5); WHITE BLOOD COUNT 12.4 10^3/ul (4.5-11.0)
[2017-10-03 06:42] LABS: ALB/GLOB RATIO 1.3 (1.1-1.8); ALBUMIN 3.4 g/dL (3.0-4.8); ALT/SGPT 24 U/L (7-56); AST/SGOT 16 U/L (14-36); BILIRUBIN,DIRECT 0.1 mg/dL (0.0-0.4); BLOOD UREA NITROGEN 17 mg/dL (7-21); CALCIUM 9.1 mg/dL (8.4-10.5); GFR AFRICAN-AMERICAN > 60; GFR NON-AFRICAN AMERICAN > 60
[2017-10-03] MEDS: Pantoprazole 40 mg EC Tab PO SCH (08:17)
[2017-10-03] MEDS: POLYETHYLENE GLYCOL 3350 17 GM/Dose PACKET PO SCH (10:42)
[2017-10-03] MEDS: Enoxaparin 30 mg Syringe SC SCH (10:47)
[2017-10-03] MEDS: Sodium Chloride 0.45% 1,000 ML IV SCH (10:47)
--- NOTE | 2017-10-03 13:12 | PN ---
DATE: 10/03/2017 SUBJECTIVE: The patient is seen sitting up in room 573, bed 1. According to the patient, the had episode of heartburn this morning with reflux symptoms and the patient notified it to the patient's nurse, but the patient states that she did not like the attitude of the nurse and got upset. I have seen the patient with the nurse in charge of 5R. The patient was seen sitting up in the chair, in no discomfort or distress, watching TV. Appeared upset about the patient's nurse asking questions about her symptoms, which made the patient upset and dissatisfied. PHYSICAL EXAMINATION: VITAL SIGNS: T-max is afebrile; heart rate 82-78; blood pressure 128/74, 130/82; respirations 18-20, O2 sat is high 90%-100%. HEENT: Head examination normocephalic, atraumatic. HEENT examination shows pinkish conjunctivae. Anicteric sclerae. No oropharyngeal lesion. No neck rigidity. CHEST: Symmetrical. LUNGS: Shows no rales, crackles or wheezing. CARDIOVASCULAR: S1, S2. Regular rhythm. No audible murmur, gallop or rub. ABDOMEN: Slightly protuberant. Positive bowel sounds. GENITALIA: Female. RECTAL: Deferred. EXTREMITY: Shows no pitting edema, no calf tenderness, no Homans' sign. MUSCULOSKELETAL: Shows a body mass index noted. NEUROLOGIC: The patient is alert, awake, oriented x3. Cranial nerves II through XII grossly intact. Gait is independent. According to the patient's nurse, the patient has been ambulating independently. PSYCHIATRIC: Negative for anxiety, depression. Negative for suicidal or homicidal ideation. Negative for auditory or visual hallucinations. DIAGNOSTIC DATA: From 10/03/2017 reviewed. CBC, CMP, LFTs reviewed. Obstructive series from 10/02/2017 reviewed. The patient had fecal retention in ascending and transverse colon. The results of which were explained to the patient and updated to the patient. IMPRESSION AND PLAN: 1. Questionable exacerbation of multiple sclerosis versus questionable exacerbation of systemic lupus erythematosus. 2. Hypertension. 3. Questionable mood disorder. 4. History of hypertension. 5. Chronic pain syndrome. 6. Gastroesophageal reflux with symptoms of heartburn. 7. Constipation, fecal retention and fecal stasis in the ascending and the transverse colon. 8. Steroid-induced leukocytosis. 9. Questionable and possible gastritis. 10. Possible dilutional anemia. Plan at this time, the patient was seen by physical therapist and Victim Witness Administrator. The patient was recommended Transitional Care Unit by the physical therapist. We are still awaiting the patient's acceptance to Transitional Care Unit. Depending upon the patient's acceptance, the patient will be considered for discharge and transfer to Transitional Care Unit for further rehab management. The patient was extensively explained about the details of her medical condition. The patient was explained about the patient's complaints and issues from the morning with the patient's nurse was discussed and extensively explained to the patient at length with the nurse supervisor mail carriers for 5R present. I have advised the patient to address her complaints and issues to the appropriate authorities. The patient was updated about her clinical condition. Recommendation by Neurology was updated to the patient at length and all questions concerned answered. According to the patient's nurse, the patient initially wanted to go home and initially refused to receive today's dose of IV Solu-Medrol as ordered by the urologist. But later on, the patient changed her mind and agreed to stay for further therapy and possible transfer to TCU. Dictated and electronically signed, not read. Jace Moss MD
[2017-10-04] MEDS: POLYETHYLENE GLYCOL 3350 17 GM/Dose PACKET PO SCH ×2 (00:23→10:00)
[2017-10-04] MEDS: HYDROmorphone 0.5 mg/0.5 ml ISec IVP PRN ×2 (00:24→10:00)
[2017-10-04] MEDS: Pantoprazole 40 mg EC Tab PO SCH (08:03)
[2017-10-04 08:35] VITALS: BP 115/71; PULSE 63; RESP 18; TEMP 98; O2SAT 97
[2017-10-04] MEDS: Enoxaparin 30 mg Syringe SC SCH (10:00)
--- NOTE | 2017-10-05 23:04 | CP.PCM.DIS ---
Provider - Provider Date of Admission: 10/01/17 19:44 Attending physician: Jace Moss MD Primary care physician: Jace Moss MD Time Spent in preparation of Discharge (in minutes): 45 Hospital Course - Lab Results Lab Results: Most Recent Lab Values WBC 12.4 10^3/ul (4.5-11.0) H D 10/03/17 05:15 RBC 3.63 10^6/uL (3.5-6.1) 10/03/17 05:15 Hgb 9.9 g/dL (12.0-16.0) L 10/03/17 05:15 Hct 31.2 % (36.0-48.0) L 10/03/17 05:15 MCV 86.0 fl (80.0-105.0) 10/03/17 05:15 MCH 27.3 pg (25.0-35.0) 10/03/17 05:15 MCHC 31.7 g/dl (31.0-37.0) 10/03/17 05:15 RDW 13.3 % (11.5-14.5) 10/03/17 05:15 Plt Count 262 10^3/uL (120.0-450.0) 10/03/17 05:15 MPV 10.8 fl (7.0-11.0) 10/02/17 06:00 Gran % 86.9 % (50.0-68.0) H 10/03/17 05:15 Lymph % (Auto) 8.8 % (22.0-35.0) L 10/03/17 05:15 [place] % (Auto) 4.2 % (1.0-6.0) 10/03/17 05:15 Eos % (Auto) 0.0 % (1.5-5.0) L 10/03/17 05:15 Baso % (Auto) 0.1 % (0.0-3.0) 10/03/17 05:15 Gran # 10.82 (1.4-6.5) H 10/03/17 05:15 Lymph # (Auto) 1.1 (1.2-3.4) L 10/03/17 05:15 [place] # (Auto) 0.5 (0.1-0.6) 10/03/17 05:15 Eos # (Auto) 0.0 (0.0-0.7) 10/03/17 05:15 Baso # (Auto) 0.01 K/mm3 (0.0-2.0) 10/03/17 05:15 ESR 10 mm/hr (0.0-20.0) 10/01/17 17:15 PT 12.6 SECONDS (9.4-12.5) H 10/01/17 17:30 INR 1.10 (0.93-1.08) H 10/01/17 17:30 APTT 33.4 Seconds (25.1-36.5) 10/01/17 17:30 pO2 69 mm/Hg (30-55) H 10/01/17 17:30 VBG pH 7.38 (7.32-7.43) 10/01/17 17:30 VBG pCO2 46.0 (40-60) 10/01/17 17:30 VBG HCO3 27.2 mmol/l (21-28) 10/01/17 17:30 VBG Total CO2 28.6 mmol.L (22-28) H 10/01/17 17:30 VBG O2 Sat (Calc) 96.5 % (40-65) H 10/01/17 17:30 VBG Base Excess 1.5 mmol/L (0.0-2.0) 10/01/17 17:30 VBG Potassium 4.2 mmol/L (3.6-5.2) 10/01/17 17:30 Sodium 140.0 mmol/L (132-148) 10/01/17 17:30 Chloride 108.0 mmol/L (98-107) H 10/01/17 17:30 Glucose 86 mg/dl (65-105) 10/01/17 17:30 Lactate 1.0 mmol/L (0.7-2.1) 10/01/17 17:30 FiO2 21.0 % 10/01/17 17:30 Sodium 142 mmol/L (132-148) 10/03/17 05:15 Potassium 4.1 mmol/L (3.6-5.0) 10/03/17 05:15 Chloride 107 mmol/L (98-107) 10/03/17 05:15 Carbon Dioxide 25 mmol/L (21-33) 10/03/17 05:15 Anion Gap 13 (10-20) 10/03/17 05:15 BUN 17 mg/dL (7-21) 10/03/17 05:15 Creatinine 0.7 mg/dl (0.7-1.2) 10/03/17 05:15 Est GFR ( Amer) > 60 10/03/17 05:15 Est GFR (Non-Af Amer) > 60 10/03/17 05:15 Random Glucose 172 mg/dL (70-110) H 10/03/17 05:15 Calcium 9.1 mg/dL (8.4-10.5) 10/03/17 05:15 Phosphorus 4.0 mg/dL (2.5-4.5) 10/01/17 17:30 Magnesium 2.2 mg/dL (1.7-2.2) 10/03/17 05:15 Total Bilirubin 0.4 mg/dL (0.2-1.3) 10/03/17 05:15 Direct Bilirubin 0.1 mg/dL (0.0-0.4) 10/03/17 05:15 AST 16 U/L (14-36) 10/03/17 05:15 ALT 24 U/L (7-56) 10/03/17 05:15 Alkaline Phosphatase 82 U/L (38-126) 10/03/17 05:15 Total Creatine Kinase 119 U/L (35-230) 10/01/17 17:30 Troponin I < 0.01 ng/mL 10/01/17 17:30 C-React Prot High Sens 5.16 mg/L (1.00-3.00) H 10/01/17 17:30 NT-Pro-B Natriuret Pep 37.6 pg/mL (0-450) 10/01/17 17:30 Total Protein 6.1 g/dL (5.8-8.3) 10/03/17 05:15 Albumin 3.4 g/dL (3.0-4.8) 10/03/17 05:15 Globulin 2.7 gm/dL 10/03/17 05:15 Albumin/Globulin Ratio 1.3 (1.1-1.8) 10/03/17 05:15 Lipase 42 U/L (23-300) 10/01/17 17:30 TSH 3rd Generation 0.93 mIU/mL (0.46-4.68) 10/01/17 17:30 Beta HCG, Quant 4.99 mIU/mL (0-6.15) 10/01/17 17:30 Venous Blood Potassium 4.2 mmol/L (3.6-5.2) 10/01/17 17:30 Urine Color Yellow (YELLOW) 10/02/17 13:50 Urine Appearance Clear (CLEAR) 10/02/17 13:50 Urine pH 7.0 (4.7-8.0) 10/02/17 13:50 Ur Specific [place] 1.025 (1.005-1.035) 10/02/17 13:50 Urine Protein Negative mg/dL (<30 mg/dL) 10/02/17 13:50 Urine Glucose (UA) 250 mg/dL (NEGATIVE) H 10/02/17 13:50 Urine Ketones Negative mg/dL (NEGATIVE) 10/02/17 13:50 Urine Blood Negative (NEGATIVE) 10/02/17 13:50 Urine Nitrate Negative (NEGATIVE) 10/02/17 13:50 Urine Bilirubin Negative (NEGATIVE) 10/02/17 13:50 Urine Urobilinogen 1.0 E.U./dL (<1 E.U./dL) H 10/02/17 13:50 Ur Leukocyte Esterase Negative Abner/uL (NEGATIVE) 10/02/17 13:50 Urine Opiates Screen Positive (NEGATIVE) H 10/02/17 13:50 Urine Methadone Screen Negative (NEGATIVE) 10/02/17 13:50 Ur Barbiturates Screen Negative (NEGATIVE) 10/02/17 13:50 Ur Phencyclidine Scrn Negative (NEGATIVE) 10/02/17 13:50 Ur Amphetamines Screen Negative (NEGATIVE) 10/02/17 13:50 U Benzodiazepines Scrn Negative (NEGATIVE) 10/02/17 13:50 U Oth Cocaine Metabols Negative (NEGATIVE) 10/02/17 13:50 U Cannabinoids Screen Negative (NEGATIVE) 10/02/17 13:50 - Hospital Course Hospital Course: [facility] [address] [place], [address] Health Information Management History and Physical : [id number] ISigned Patient: BRITNEY VARGAS Acct:[id number] Unit: [id number] : 1965 Loc: 5RNO Room/Bed: [facility] Age/Sex: 51 / F ADM Status: ADM IN ADM Date: 10/01/17 History of Present Illness - History of Present Illness History of Present Illness: 51 year old female with a past medical history of Multiple sclerosis, hypertension, osteopenia, and hypertension who comes in today complaining of myalgias, spasms and six episodes of vomiting for the past day. The patient describes the pain in her muscles as throbbing in nature that is consistent. The patient reports going to her PMD Dr. Moss earlier today who recommended she be transferred to the emergency room for further workup. The patient's last Lupus flare up was 2 years ago. She denies any chest pain, fevers, chills , changes in vision, dizziness, syncopal episodes, changes in diet, recent travel, or any other complaints. PMD: Dr. Moss Neurologist: Dr. Cruz Mounted Police: Dr. Boggs Past medical history: hypertension, MS, Lupus, hypertension, osteopenia Medications: Plaquenil 200mg BID, Lyrica 200mg BID, Norvasc 10mg PO Daily, Diovan 320 mg Daily Allergies: Denies Surgical history: Tubal ligation, uterine ablation, removal right ovarian cyst Social history: Denies smoking, drinking, or illicit drug use. Live in [place]. Works at [employer]. Present on Admission - Present on Admission Any Indicators Present on Admission: No Review of Systems - Constitutional Constitutional: absent: Daytime Sleepiness, Headache, Increased Appetite, Sleep Apnea, Weight Gain - EENT Eyes: Blurred Vision. absent: Discharge, Loss of Peripheral Vision, Sees Flashes, Loss of Vision Ears: absent: Ear Discharge, Dizziness Nose/Mouth/Throat: absent: Nasal Congestion, Post Nasal Drip, Dental Pain, Mouth Lesions, Throat Swelling - Cardiovascular Cardiovascular: absent: Chest Pain, Diaphoresis, Irregular Heart Rhythm, Leg Edema, Leg Ulcers, Slow Heart Rate - Respiratory Respiratory: absent: Cough, Dyspnea, Hemoptysis, Pain on Inspiration, Excessive Mucous Production, Change in Mucous Color - Gastrointestinal Gastrointestinal: Nausea, Vomiting. absent: Belching, Bloating, Excessive Flatus, Hematemesis, Temesmus - Musculoskeletal Musculoskeletal: Arthralgias, Muscle Cramps, Myalgias. absent: Abnormal Gait, Atrophy, Back Pain, Limited Range of Motion, Neck Pain, Numbness - Integumentary Integumentary: absent: Alopecia, Bleeding Lesions, Skin Pain - Neurological Neurological: absent: Abnormal Hearing, Burning Sensations, Dizziness, Numbness , Lack of Coordination, Restless Legs, Vertigo, Weakness - Psychiatric Psychiatric: absent: Panic Attacks, Paranoia - Hematologic/Lymphatic Hematologic: absent: Easy Bleeding, Easy Bruising Past Patient History - Infectious Disease Hx of Infectious Diseases: None - Past Social History Smoking Status: Heavy Smoker > 10 Cigarettes Daily - CARDIAC Hx Hypertension: Yes - NEUROLOGICAL Hx Dizziness: Yes Hx Multiple Sclerosis: Yes - ENDOCRINE/METABOLIC Hx Systemic Lupus Erythematosus: Yes - MUSCULOSKELETAL/RHEUMATOLOGICAL Hx Osteoarthritis: Yes - PSYCHIATRIC Hx Substance Use: No - SURGICAL HISTORY Hx Tubal Ligation: Yes - ANESTHESIA Hx Anesthesia: No Hx Anesthesia Reactions: No Hx Malignant Hyperthermia: No Meds Allergies/Adverse Reactions: Allergies Allergy/AdvReac Type Severity Reaction Status Date / Time No Known Allergies Allergy Verified 10/01/17 23:34 Physical Exam - Head Exam Head Exam: ATRAUMATIC, NORMAL INSPECTION, NORMOCEPHALIC - Eye Exam Eye Exam: EOMI, Normal appearance, PERRL. absent: Nystagmus, Periorbital tenderness Pupil Exam: NORMAL ACCOMODATION, PERRL - ENT Exam ENT Exam: Mucous Membranes Moist, Normal Oropharynx - Respiratory Exam Respiratory Exam: Clear to Auscultation Bilateral, NORMAL BREATHING PATTERN. absent: Decreased Breath Sounds, Rales, Rhonchi - Cardiovascular Exam Cardiovascular Exam: REGULAR RHYTHM, +S1, +S2 - GI/Abdominal Exam GI & Abdominal Exam: Normal Bowel Sounds, Soft - Extremities Exam Extremities exam: Positive for: normal inspection, tenderness. Negative for: joint swelling, pedal edema Additional comments: Motor strength 5/5 in lower extremities. Motor stregth 4/5 on right upper extremity. 5/5 on left upper extremity. - Back Exam Back exam: NORMAL INSPECTION. absent: paraspinal tenderness - Neurological Exam Neurological exam: Alert, CN II-XII Intact, Oriented x3 - Psychiatric Exam Psychiatric exam: Normal Affect, Normal Mood - Skin Skin Exam: Dry, Intact, Normal Color Results - Vital Signs Recent Vital Signs: Last Vital Signs Temp 98.6 F 10/01/17 16:21 Pulse 79 10/01/17 18:00 Resp 18 10/01/17 18:00 BP 148/78 06/28/18 18:00 Pulse Ox 98 10/01/17 18:00 - Labs Result Diagrams: 10/01/17 17:15 10/01/17 17:30 Assessment & Plan - Assessment and Plan (Free Text) Assessment: 51 year old female with a history of ms, lupus, hypertension and ostopenia who is being admitted for MS exacerbation. Plan: 1.MS exacerbation -1 gram of IV Solu-medrol given in the E.D. -Neurology consulted. Help appreciated -Home medications restarted. 2. Vomiting/nausea -IV Zofran started. 3. Myalgias -Negative Lemus sign on Physical exam -Duplex l/e ordered. Will f/u with results -STAT CPK ordered .Will f/u with results -Outo of bed as tolerated. -Physical Therapy consulted. -1/2 NS @80mls/hr 4.hx of Lupus -home medications restarted 5. hx of Hypertension -home medications restarted PPX -Protonix -Lovenox Copied To: Copied To Cosigner: Attending MD: Jace Moss MD HISTORY OF PRESENT ILLNESS: The patient is a 51-year-old female who was admitted through the Emergency Room initially seen in the office for nausea, vomiting, abdominal discomfort and generalized body pain. The patient started feeling extremely sick in the office and the patient was sent to the Emergency Room because of the patient's medical condition being unstable and the patient was unable to control her nausea and vomiting and was sent to the Emergency Room. From there, the patient was admitted after the patient was evaluated in the emergency room and the ER physician contacted Neurology and according to Dr. Cruz's recommendation, the patient was advised to be admitted for IV steroid therapy for exacerbation of MS. This is the addendum to the history and physical examination which was done by the medical aide. IMPRESSION AND PLAN: 1. Questionable and possible acute exacerbation of multiple sclerosis. 2. Questionable intractable nausea, vomiting (resolved) and abdominal pain. 3. History of hypertension. 4. History of systemic lupus erythematosus. 5. Neuropathy. 6. Chronic pain syndrome. 7. Mild normocytic anemia. 8. Hypovitaminosis D. 9. Hypogammaglobinemia. 10. Demyelinating disease of the brain and cervical spine. 11. History of multiple sclerosis. 12. History of tubal ligation. 13. History of osteopenia. 14. History of uterine ablation. 15. History of right ovarian cyst surgery. 16. Constipation. 16. Deconditioning 17. Gait dysfunction 1. Questionable exacerbation of multiple sclerosis versus questionable exacerbation of systemic lupus erythematosus. 2. Hypertension. 3. Questionable mood disorder. 4. History of hypertension. 5. Chronic pain syndrome. 6. Gastroesophageal reflux with symptoms of heartburn. 7. Constipation, fecal retention and fecal stasis in the ascending and the transverse colon. 8. Steroid-induced leukocytosis. 9. Questionable and possible gastritis. 10. Possible dilutional anemia. Please refer to the detailed history and physical examination by the medical aide. The patient examined. Vital signs, diagnostic data reviewed and explained to the patient. PLAN: At this time, the patient is to be admitted to [facility] for IV steroid treatment as recommended by Neurology. The patient has been ordered serial labs. The patient has been ordered obstructive series for evaluation of constipation. Neurology consultation ordered. CURRENT MEDICATIONS: Half normal saline at 80 mL an hour, Colace 100 mg three times a day, Dilaudid 0.5 mg IV every 6 hours p.r.n., Diovan 320 mg daily, Lovenox 30 mg subcu daily, Lyrica 200 twice a day, MiraLax 17 g twice a day, Plaquenil 200 twice a day, Protonix 40 mg daily. The patient is on Solu-Medrol 1000 mg one dose yesterday, one dose today as ordered by Neurology, Zanaflex 4 mg daily, Zofran 4 mg IV every 4 hours p.r.n. Incentive spirometry. Heart-healthy diet. Neuro checks. Out of bed, DUANE stockings, SCDs, physical therapy, occupational therapy ordered.. At present, the patient is to be continued on the above therapeutic intervention until further evaluation and recommendation by Neurology. PATIENT ACCEPTED TO TCU TO BE TRANSFERRED TO TCU FOR PT/OT AND GAIT TRAINING AND AMBULATION Dictated and electronically signed, not read. Jace Moss MD 10/04/2017 Discharge Exam - Head Exam Head Exam: ATRAUMATIC, NORMAL INSPECTION, NORMOCEPHALIC - Additional Findings Additional findings: Microtest Diagnostics Discharge Summary Patient Name: BRITNEY VARGAS Date of : 69 Patient Status: Inpatient Attending Provider: Jace Moss Date: 10/05/17 23:03 Initialization Date: 10/05/17 23:03 Provider - Provider Date of Admission: 10/01/17 19:44 Attending physician: Jace Moss MD Primary care physician: Jace Moss MD Time Spent in preparation of Discharge (in minutes): 45 Hospital Course - Lab Results Lab Results: Most Recent Lab Values WBC 12.4 10^3/ul (4.5-11.0) H D 10/03/17 05:15 RBC 3.63 10^6/uL (3.5-6.1) 10/03/17 05:15 Hgb 9.9 g/dL (12.0-16.0) L 10/03/17 05:15 Hct 31.2 % (36.0-48.0) L 10/03/17 05:15 MCV 86.0 fl (80.0-105.0) 10/03/17 05:15 MCH 27.3 pg (25.0-35.0) 10/03/17 05:15 MCHC 31.7 g/dl (31.0-37.0) 10/03/17 05:15 RDW 13.3 % (11.5-14.5) 10/03/17 05:15 Plt Count 262 10^3/uL (120.0-450.0) 10/03/17 05:15 MPV 10.8 fl (7.0-11.0) 10/02/17 06:00 Gran % 86.9 % (50.0-68.0) H 10/03/17 05:15 Lymph % (Auto) 8.8 % (22.0-35.0) L 10/03/17 05:15 Vil[place] % (Auto) 4.2 % (1.0-6.0) 10/03/17 05:15 Eos % (Auto) 0.0 % (1.5-5.0) L 10/03/17 05:15 Baso % (Auto) 0.1 % (0.0-3.0) 10/03/17 05:15 Gran # 10.82 (1.4-6.5) H 10/03/17 05:15 Lymph # (Auto) 1.1 (1.2-3.4) L 10/03/17 05:15 Vil[place] # (Auto) 0.5 (0.1-0.6) 10/03/17 05:15 Eos # (Auto) 0.0 (0.0-0.7) 10/03/17 05:15 Baso # (Auto) 0.01 K/mm3 (0.0-2.0) 10/03/17 05:15 ESR 10 mm/hr (0.0-20.0) 10/01/17 17:15 PT 12.6 SECONDS (9.4-12.5) H 10/01/17 17:30 INR 1.10 (0.93-1.08) H 10/01/17 17:30 APTT 33.4 Seconds (25.1-36.5) 10/01/17 17:30 pO2 69 mm/Hg (30-55) H 10/01/17 17:30 VBG pH 7.38 (7.32-7.43) 10/01/17 17:30 VBG pCO2 46.0 (40-60) 10/01/17 17:30 VBG HCO3 27.2 mmol/l (21-28) 10/01/17 17:30 VBG Total CO2 28.6 mmol.L (22-28) H 10/01/17 17:30 VBG O2 Sat (Calc) 96.5 % (40-65) H 10/01/17 17:30 VBG Base Excess 1.5 mmol/L (0.0-2.0) 10/01/17 17:30 VBG Potassium 4.2 mmol/L (3.6-5.2) 10/01/17 17:30 Sodium 140.0 mmol/L (132-148) 10/01/17 17:30 Chloride 108.0 mmol/L (98-107) H 10/01/17 17:30 Glucose 86 mg/dl (65-105) 10/01/17 17:30 Lactate 1.0 mmol/L (0.7-2.1) 10/01/17 17:30 FiO2 21.0 % 10/01/17 17:30 Sodium 142 mmol/L (132-148) 10/03/17 05:15 Potassium 4.1 mmol/L (3.6-5.0) 10/03/17 05:15 Chloride 107 mmol/L (98-107) 10/03/17 05:15 Carbon Dioxide 25 mmol/L (21-33) 10/03/17 05:15 Anion Gap 13 (10-20) 10/03/17 05:15 BUN 17 mg/dL (7-21) 10/03/17 05:15 Creatinine 0.7 mg/dl (0.7-1.2) 10/03/17 05:15 Est GFR ( Amer) > 60 10/03/17 05:15 Est GFR (Non-Af Amer) > 60 10/03/17 05:15 Random Glucose 172 mg/dL (70-110) H 10/03/17 05:15 Calcium 9.1 mg/dL (8.4-10.5) 10/03/17 05:15 Phosphorus 4.0 mg/dL (2.5-4.5) 10/01/17 17:30 Magnesium 2.2 mg/dL (1.7-2.2) 10/03/17 05:15 Total Bilirubin 0.4 mg/dL (0.2-1.3) 10/03/17 05:15 Direct Bilirubin 0.1 mg/dL (0.0-0.4) 10/03/17 05:15 AST 16 U/L (14-36) 10/03/17 05:15 ALT 24 U/L (7-56) 10/03/17 05:15 Alkaline Phosphatase 82 U/L (38-126) 10/03/17 05:15 Total Creatine Kinase 119 U/L (35-230) 10/01/17 17:30 Troponin I < 0.01 ng/mL 10/01/17 17:30 C-React Prot High Sens 5.16 mg/L (1.00-3.00) H 10/01/17 17:30 NT-Pro-B Natriuret Pep 37.6 pg/mL (0-450) 10/01/17 17:30 Total Protein 6.1 g/dL (5.8-8.3) 10/03/17 05:15 Albumin 3.4 g/dL (3.0-4.8) 10/03/17 05:15 Globulin 2.7 gm/dL 10/03/17 05:15 Albumin/Globulin Ratio 1.3 (1.1-1.8) 10/03/17 05:15 Lipase 42 U/L (23-300) 10/01/17 17:30 TSH 3rd Generation 0.93 mIU/mL (0.46-4.68) 10/01/17 17:30 Beta HCG, Quant 4.99 mIU/mL (0-6.15) 10/01/17 17:30 Venous Blood Potassium 4.2 mmol/L (3.6-5.2) 10/01/17 17:30 Urine Color Yellow (YELLOW) 10/02/17 13:50 Urine Appearance Clear (CLEAR) 10/02/17 13:50 Urine pH 7.0 (4.7-8.0) 10/02/17 13:50 Ur Specific [place] 1.025 (1.005-1.035) 10/02/17 13:50 Urine Protein Negative mg/dL (<30 mg/dL) 10/02/17 13:50 Urine Glucose (UA) 250 mg/dL (NEGATIVE) H 10/02/17 13:50 Urine Ketones Negative mg/dL (NEGATIVE) 10/02/17 13:50 Urine Blood Negative (NEGATIVE) 10/02/17 13:50 Urine Nitrate Negative (NEGATIVE) 10/02/17 13:50 Urine Bilirubin Negative (NEGATIVE) 10/02/17 13:50 Urine Urobilinogen 1.0 E.U./dL (<1 E.U./dL) H 10/02/17 13:50 Ur Leukocyte Esterase Negative Abner/uL (NEGATIVE) 10/02/17 13:50 Urine Opiates Screen Positive (NEGATIVE) H 10/02/17 13:50 Urine Methadone Screen Negative (NEGATIVE) 10/02/17 13:50 Ur Barbiturates Screen Negative (NEGATIVE) 10/02/17 13:50 Ur Phencyclidine Scrn Negative (NEGATIVE) 10/02/17 13:50 Ur Amphetamines Screen Negative (NEGATIVE) 10/02/17 13:50 U Benzodiazepines Scrn Negative (NEGATIVE) 10/02/17 13:50 U Oth Cocaine Metabols Negative (NEGATIVE) 10/02/17 13:50 U Cannabinoids Screen Negative (NEGATIVE) 10/02/17 13:50 - Hospital Course Hospital Course: [facility] [address] [place], [address] Health Information Management History and Physical : ISigned Patient: BRITNEY VARGAS Acct:[id number] Unit: [id number] : 1965 Loc: [facility] Room/Bed: [facility] Age/Sex: 51 / F ADM Status: ADM IN ADM Date: 10/01/17 History of Present Illness - History of Present Illness History of Present Illness: 51 year old female with a past medical history of Multiple sclerosis, hypertension, osteopenia, and hypertension who comes in today complaining of myalgias, spasms and six episodes of vomiting for the past day. The patient describes the pain in her muscles as throbbing in nature that is consistent. The patient reports going to her PMD Dr. Moss earlier today who recommended she be transferred to the emergency room for further workup. The patient's last Lupus flare up was 2 years ago. She denies any chest pain, fevers, chills , changes in vision, dizziness, syncopal episodes, changes in diet, recent travel, or any other complaints. PMD: Dr. Moss Neurologist: Dr. Cruz [employer]: Dr. Boggs Past medical history: hypertension, MS, Lupus, hypertension, osteopenia Medications: Plaquenil 200mg BID, Lyrica 200mg BID, Norvasc 10mg PO Daily, Diovan 320 mg Daily Allergies: Denies Surgical history: Tubal ligation, uterine ablation, removal right ovarian cyst Social history: Denies smoking, drinking, or illicit drug use. Live in [place]. Works at [employer]. Present on Admission - Present on Admission Any Indicators Present on Admission: No Review of Systems - Constitutional Constitutional: absent: Daytime Sleepiness, Headache, Increased Appetite, Sleep Apnea, Weight Gain - EENT Eyes: Blurred Vision. absent: Discharge, Loss of Peripheral Vision, Sees Flashes, Loss of Vision Ears: absent: Ear Discharge, Dizziness Nose/Mouth/Throat: absent: Nasal Congestion, Post Nasal Drip, Dental Pain, Mouth Lesions, Throat Swelling - Cardiovascular Cardiovascular: absent: Chest Pain, Diaphoresis, Irregular Heart Rhythm, Leg Edema, Leg Ulcers, Slow Heart Rate - Respiratory Respiratory: absent: Cough, Dyspnea, Hemoptysis, Pain on Inspiration, Excessive Mucous Production, Change in Mucous Color - Gastrointestinal Gastrointestinal: Nausea, Vomiting. absent: Belching, Bloating, Excessive Flatus, Hematemesis, Temesmus - Musculoskeletal Musculoskeletal: Arthralgias, Muscle Cramps, Myalgias. absent: Abnormal Gait, Atrophy, Back Pain, Limited Range of Motion, Neck Pain, Numbness - Integumentary Integumentary: absent: Alopecia, Bleeding Lesions, Skin Pain - Neurological Neurological: absent: Abnormal Hearing, Burning Sensations, Dizziness, Numbness , Lack of Coordination, Restless Legs, Vertigo, Weakness - Psychiatric Psychiatric: absent: Panic Attacks, Paranoia - Hematologic/Lymphatic Hematologic: absent: Easy Bleeding, Easy Bruising Past Patient History - Infectious Disease Hx of Infectious Diseases: None - Past Social History Smoking Status: Heavy Smoker > 10 Cigarettes Daily - CARDIAC Hx Hypertension: Yes - NEUROLOGICAL Hx Dizziness: Yes Hx Multiple Sclerosis: Yes - ENDOCRINE/METABOLIC Hx Systemic Lupus Erythematosus: Yes - MUSCULOSKELETAL/RHEUMATOLOGICAL Hx Osteoarthritis: Yes - PSYCHIATRIC Hx Substance Use: No - SURGICAL HISTORY Hx Tubal Ligation: Yes - ANESTHESIA Hx Anesthesia: No Hx Anesthesia Reactions: No Hx Malignant Hyperthermia: No Meds Allergies/Adverse Reactions: Allergies Allergy/AdvReac Type Severity Reaction Status Date / Time No Known Allergies Allergy Verified 10/01/17 23:34 Physical Exam - Head Exam Head Exam: ATRAUMATIC, NORMAL INSPECTION, NORMOCEPHALIC - Eye Exam Eye Exam: EOMI, Normal appearance, PERRL. absent: Nystagmus, Periorbital tenderness Pupil Exam: NORMAL ACCOMODATION, PERRL - ENT Exam ENT Exam: Mucous Membranes Moist, Normal Oropharynx - Respiratory Exam Respiratory Exam: Clear to Auscultation Bilateral, NORMAL BREATHING PATTERN. absent: Decreased Breath Sounds, Rales, Rhonchi - Cardiovascular Exam Cardiovascular Exam: REGULAR RHYTHM, +S1, +S2 - GI/Abdominal Exam GI & Abdominal Exam: Normal Bowel Sounds, Soft - Extremities Exam Extremities exam: Positive for: normal inspection, tenderness. Negative for: joint swelling, pedal edema Additional comments: Motor strength 5/5 in lower extremities. Motor stregth 4/5 on right upper extremity. 5/5 on left upper extremity. - Back Exam Back exam: NORMAL INSPECTION. absent: paraspinal tenderness - Neurological Exam Neurological exam: Alert, CN II-XII Intact, Oriented x3 - Psychiatric Exam Psychiatric exam: Normal Affect, Normal Mood - Skin Skin Exam: Dry, Intact, Normal Color Results - Vital Signs Recent Vital Signs: Last Vital Signs Temp 98.6 F 10/01/17 16:21 Pulse 79 10/01/17 18:00 Resp 18 10/01/17 18:00 BP 148/78 10/01/17 18:00 Pulse Ox 98 10/01/17 18:00 - Labs Result Diagrams: 10/01/17 17:15 10/01/17 17:30 Assessment & Plan - Assessment and Plan (Free Text) Assessment: 51 year old female with a history of ms, lupus, hypertension and ostopenia who is being admitted for MS exacerbation. Plan: 1.MS exacerbation -1 gram of IV Solu-medrol given in the E.D. -Neurology consulted. Help appreciated -Home medications restarted. 2. Vomiting/nausea -IV Zofran started. 3. Myalgias -Negative Lemus sign on Physical exam -Duplex l/e ordered. Will f/u with results -STAT CPK ordered .Will f/u with results -Outo of bed as tolerated. -Physical Therapy consulted. -1/2 NS @80mls/hr 4.hx of Lupus -home medications restarted 5. hx of Hypertension -home medications restarted PPX -Protonix -Lovenox Copied To: Copied To Cosigner: Attending MD: Jace Moss MD HISTORY OF PRESENT ILLNESS: The patient is a 51-year-old female who was admitted through the Emergency Room initially seen in the office for nausea, vomiting, abdominal discomfort and generalized body pain. The patient started feeling extremely sick in the office and the patient was sent to the Emergency Room because of the patient's medical condition being unstable and the patient was unable to control her nausea and vomiting and was sent to the Emergency Room. From there, the patient was admitted after the patient was evaluated in the emergency room and the ER physician contacted Neurology and according to Dr. Cruz's recommendation, the patient was advised to be admitted for IV steroid therapy for exacerbation of MS. This is the addendum to the history and physical examination which was done by the medical aide. IMPRESSION AND PLAN: 1. Questionable and possible acute exacerbation of multiple sclerosis. 2. Questionable intractable nausea, vomiting (resolved) and abdominal pain. 3. History of hypertension. 4. History of systemic lupus erythematosus. 5. Neuropathy. 6. Chronic pain syndrome. 7. Mild normocytic anemia. 8. Hypovitaminosis D. 9. Hypogammaglobinemia. 10. Demyelinating disease of the brain and cervical spine. 11. History of multiple sclerosis. 12. History of tubal ligation. 13. History of osteopenia. 14. History of uterine ablation. 15. History of right ovarian cyst surgery. 16. Constipation. 16. Deconditioning 17. Gait dysfunction 1. Questionable exacerbation of multiple sclerosis versus questionable exacerbation of systemic lupus erythematosus. 2. Hypertension. 3. Questionable mood disorder. 4. History of hypertension. 5. Chronic pain syndrome. 6. Gastroesophageal reflux with symptoms of heartburn. 7. Constipation, fecal retention and fecal stasis in the ascending and the transverse colon. 8. Steroid-induced leukocytosis. 9. Questionable and possible gastritis. 10. Possible dilutional anemia. Please refer to the detailed history and physical examination by the medical aide. The patient examined. Vital signs, diagnostic data reviewed and explained to the patient. PLAN: At this time, the patient is to be admitted to [facility] for IV steroid treatment as recommended by Neurology. The patient has been ordered serial labs. The patient has been ordered obstructive series for evaluation of constipation. Neurology consultation ordered. CURRENT MEDICATIONS: Half normal saline at 80 mL an hour, Colace 100 mg three times a day, Dilaudid 0.5 mg IV every 6 hours p.r.n., Diovan 320 mg daily, Lovenox 30 mg subcu daily, Lyrica 200 twice a day, MiraLax 17 g twice a day, Plaquenil 200 twice a day, Protonix 40 mg daily. The patient is on Solu-Medrol 1000 mg one dose yesterday, one dose today as ordered by Neurology, Zanaflex 4 mg daily, Zofran 4 mg IV every 4 hours p.r.n. Incentive spirometry. Heart-healthy diet. Neuro checks. Out of bed, DUANE stockings, SCDs, physical therapy, occupational therapy ordered.. At present, the patient is to be continued on the above therapeutic intervention until further evaluation and recommendation by Neurology. PATIENT ACCEPTED TO TCU TO BE TRANSFERRED TO TCU FOR PT/OT AND GAIT TRAINING AND AMBULATION Dictated and electronically signed, not read. Jace Moss MD 10/04/2017 Discharge Exam - Head Exam Head Exam: ATRAUMATIC, NORMAL INSPECTION, NORMOCEPHALIC Discharge Plan - Discharge Medications Prescriptions: Docusate [Colace] 100 mg PO TID #90 cap Polyethylene Glycol 3350 [Miralax] 17 gm PO Q12 #60 packet Pantoprazole [Protonix EC Tab] 40 mg PO ACB #30 ect - Follow Up Plan Condition: STABLE Disposition: TRANSF TO SNF Instructions: Acute Abdomen (Belly Pain), Adult (DC), Nausea and Vomiting, Adult (DC), Knee Pain (DC) Additional Instructions: MAY DISCHARGE TO TCU IF ACCEPTED OTHER [facility] MAY DISCHARGE HOME AFTER TODAY'S DOSE OF IV SOLUMEDROL RESUME ALL HOME MEDS FOLLOW UP DR.HAQUE BANKS WITHIN 1-2 WEEKS Referrals: Jace Moss MD [Primary Care Provider] - 1 Week (MAY DISCHARGE TO TCU IF ACCEPTED OTHER [facility] MAY DISCHARGE HOME AFTER TODAY'S DOSE OF IV SOLUMEDROL RESUME ALL HOME MEDS FOLLOW UP DR.HAQUE BANKS WITHIN 1-2 WEEKS ) Garry Cruz MD [Staff Provider] - 1 Week (MAY DISCHARGE TO TCU IF ACCEPTED OTHER [facility] MAY DISCHARGE HOME AFTER TODAY'S DOSE OF IV SOLUMEDROL RESUME ALL HOME MEDS FOLLOW UP DR.HAQUE BANKS WITHIN 1-2 WEEKS ) Discharge Plan - Discharge Medications Prescriptions: Docusate [Colace] 100 mg PO TID #90 cap Polyethylene Glycol 3350 [Miralax] 17 gm PO Q12 #60 packet Pantoprazole [Protonix EC Tab] 40 mg PO ACB #30 ect - Follow Up Plan Condition: STABLE Disposition: TRANSF TO SNF Instructions: Acute Abdomen (Belly Pain), Adult (DC), Nausea and Vomiting, Adult (DC), Knee Pain (DC) Additional Instructions: MAY DISCHARGE TO TCU IF ACCEPTED OTHER [facility] MAY DISCHARGE HOME AFTER TODAY'S DOSE OF IV SOLUMEDROL RESUME ALL HOME MEDS FOLLOW UP DR.HAQUE BANKS WITHIN 1-2 WEEKS Referrals: Jace Moss MD [Primary Care Provider] - 1 Week (MAY DISCHARGE TO TCU IF ACCEPTED OTHER [facility] MAY DISCHARGE HOME AFTER TODAY'S DOSE OF IV SOLUMEDROL RESUME ALL HOME MEDS FOLLOW UP DR.HAQUE BANKS WITHIN 1-2 WEEKS ) Garry Cruz MD [Staff Provider] - 1 Week (MAY DISCHARGE TO TCU IF ACCEPTED OTHER [facility] MAY DISCHARGE HOME AFTER TODAY'S DOSE OF IV SOLUMEDROL RESUME ALL HOME MEDS FOLLOW UP DR.HAQUE BANKS WITHIN 1-2 WEEKS )
== END 2017-10-04 11:30 | DRG 60 ==
LOC: ED 15:52 → ERH 19:44 → 5RNO 23:12 → 5RSO 10-02 19:35
PROVIDERS: ADMIT Internal Medicine; ATTEND Internal Medicine
DX: G35 Multiple sclerosis (principal); M32.9 Systemic lupus erythematosus, unspecified; G89.4 Chronic pain syndrome; I10 Essential (primary) hypertension; G62.9 Polyneuropathy, unspecified; D64.9 Anemia, unspecified; K59.00 Constipation, unspecified; K29.70 Gastritis, unspecified, without bleeding; K21.9 Gastro-esophageal reflux disease without esophagitis; E55.9 Vitamin D deficiency, unspecified; R11.2 Nausea with vomiting, unspecified; M85.80 Other specified disorders of bone density and structure, unspecified site; D72.829 Elevated white blood cell count, unspecified; T38.0X5A Adverse effect of glucocorticoids and synthetic analogues, initial encounter; Z87.891 Personal history of nicotine dependence

== ENCOUNTER 2017-10-04 11:35 | Inpatient (IN) | payer OTHER ==
[2017-10-04] MEDS: HYDROmorphone 0.5 mg/0.5 ml ISec IVP PRN ×2 (16:22→23:55)
[2017-10-04] MEDS: POLYETHYLENE GLYCOL 3350 17 GM/Dose PACKET PO SCH (21:39)
[2017-10-05] MEDS: Enoxaparin 30 mg Syringe SC SCH (05:57)
[2017-10-05] MEDS: Pantoprazole 40 mg EC Tab PO SCH (05:57)
[2017-10-05] MEDS: HYDROmorphone 0.5 mg/0.5 ml ISec IVP PRN ×2 (09:12→15:59)
[2017-10-05] MEDS: POLYETHYLENE GLYCOL 3350 17 GM/Dose PACKET PO SCH ×2 (09:13→21:36)
--- NOTE | 2017-10-05 11:29 | CP.PCM.HP ---
History of Present Illness - History of Present Illness History of Present Illness: Shahida Dimas PGY 1 Resident Medicine Progress Note Patient is a 51 yo female with PMH MS, lupus, HTN, osteopenia, HTN presenting with complaint of myalgias, spasms and six episodes of vomiting in the past day. She describes her pain as throbbing and constant. She had been seen by her PMD Dr. Moss who sent her to the ER due to severity of symptoms. Of note patient reports her last lupus flare up was 2 years ago. Patient was admitted for MS flare, treated with 1 g Solumedrol x2. Physical therapy evaluated patient, recommended TCU. Patient sent to TCU for further care and management. PMD: Dr. Moss Neurologist: Dr. Cruz Lead Level Designer: Dr. Boggs Past medical history: hypertension, MS, Lupus, hypertension, osteopenia Medications: Plaquenil 200mg BID, Lyrica 200mg BID, Norvasc 10mg PO Daily, Diovan 320 mg Daily Allergies: Denies Surgical history: Tubal ligation, uterine ablation, removal right ovarian cyst Social history: Denies smoking, drinking, or illicit drug use. Live in [place]. Works at [employer]. Present on Admission - Present on Admission Any Indicators Present on Admission: No History of DVT/PE: No History of Uncontrolled Diabetes: No Urinary Catheter: No Decubitus Ulcer Present: No Review of Systems - Review of Systems All systems: reviewed and no additional remarkable complaints except Review of Systems: As per HPI - Constitutional Constitutional: Weakness. absent: Anorexia, Fever - EENT Eyes: absent: Change in Vision Ears: absent: Abnormal Hearing - Cardiovascular Cardiovascular: absent: Chest Pain, Palpitations - Respiratory Respiratory: absent: Cough, Hemoptysis - Gastrointestinal Gastrointestinal: Nausea, Vomiting - Genitourinary Genitourinary: absent: Dysuria, Hematuria - Musculoskeletal Musculoskeletal: Muscle Cramps, Myalgias - Integumentary Integumentary: absent: Lesions, Rash - Neurological Neurological: absent: Loss of Vision, Memory Loss - Psychiatric Psychiatric: absent: Change in Appetite, Memory Loss Past Patient History - Infectious Disease Hx of Infectious Diseases: None - Past Social History Smoking Status: Former Smoker - CARDIAC Hx Hypertension: Yes - PULMONARY Hx Respiratory Disorders: No - NEUROLOGICAL Hx Dizziness: Yes - HEENT Hx HEENT Problems: No - RENAL Hx Chronic Kidney Disease: No - ENDOCRINE/METABOLIC Hx Systemic Lupus Erythematosus: Yes - HEMATOLOGICAL/ONCOLOGICAL Hx Blood Disorders: No - INTEGUMENTARY Hx Dermatological Problems: No - MUSCULOSKELETAL/RHEUMATOLOGICAL Hx Arthritis: Yes - GASTROINTESTINAL Hx Gastrointestinal Disorders: No - GENITOURINARY/GYNECOLOGICAL Hx Genitourinary Disorders: No - PSYCHIATRIC Hx Psychophysiologic Disorder: No - SURGICAL HISTORY Hx Surgeries: Yes - ANESTHESIA Hx Anesthesia: No Hx Anesthesia Reactions: No Hx Malignant Hyperthermia: No Meds Allergies/Adverse Reactions: Allergies Allergy/AdvReac Type Severity Reaction Status Date / Time No Known Allergies Allergy Verified 10/04/17 11:40 Physical Exam - Constitutional Appears: Well, No Acute Distress - Head Exam Head Exam: ATRAUMATIC, NORMOCEPHALIC - Eye Exam Eye Exam: EOMI, Normal appearance - ENT Exam ENT Exam: Mucous Membranes Moist - Neck Exam Neck exam: Positive for: Normal Inspection. Negative for: Lymphadenopathy, Tenderness - Respiratory Exam Respiratory Exam: Clear to Auscultation Bilateral, NORMAL BREATHING PATTERN - Cardiovascular Exam Cardiovascular Exam: RRR, +S1, +S2. absent: Tachycardia, Systolic Murmur - GI/Abdominal Exam GI & Abdominal Exam: Normal Bowel Sounds, Soft. absent: Mass, Organomegaly, Rigid - Rectal Exam Rectal Exam: Deferred - Extremities Exam Extremities exam: Positive for: calf tenderness. Negative for: pedal edema - Back Exam Back exam: NORMAL INSPECTION - Neurological Exam Neurological exam: Alert, CN II-XII Intact, Normal Gait, Oriented x3 - Psychiatric Exam Psychiatric exam: Normal Affect, Normal Mood - Skin Skin Exam: Dry, Intact, Normal Color Results - Vital Signs Recent Vital Signs: Last Vital Signs Temp 97.6 F 10/04/17 11:57 Pulse 50 L 10/04/17 11:57 Resp 16 10/04/17 11:57 BP 136/75 10/04/17 11:57 Pulse Ox Assessment & Plan - Assessment and Plan (Free Text) Assessment: Patient is 51 yo female with PMH MS, lupus, HTN, osteopenia admitted for MS exacerbation. S/p solumedrol. Transferred to TCU for further rehab. 1) MS exacerbation - s/p solumedrol - symptoms improved - Neurology consult on board. Appreciate recs. 2) Nausea/vomiting - Zofran PRN 3) Hx of lupus - continue home medications- plaquenil, lyrica, zanaflex 4) Hx of HTN - continue home medications- valsartan DVT prophylaxis Lovenox GI prophylaxis Protonix HH diet Assessment and plan discussed with Dr. Moss. Shahida Dimas PGY 1
--- NOTE | 2017-10-05 14:40 | CON ---
UROLOGY CONSULTATION CHIEF COMPLAINT: History of MS. HISTORY OF PRESENT ILLNESS: This is a 51-year-old -[place] woman who is known to me with a past medical history of multiple sclerosis, lupus, hypertension, osteopenia presenting with mild spasms and vomiting for the past few days. She had also knee pain and has a lupus flare-up as well as a past questionable MS flare-up. She was given Solu-Medrol for 3 days 1 g and is doing much better in TCU and just has occasional muscle spasm, was doing well in physical therapy. She is clinically stable. She will follow up with me as an outpatient for underlying disease, modifying therapy for underlying multiple sclerosis. She will follow up with her stamp machine servicer for underlying lupus. PAST MEDICAL HISTORY: As above. MEDICATIONS: Reviewed by nurses' reconciliation sheet. ALLERGIES: NO KNOWN DRUG ALLERGIES. FAMILY HISTORY: Noncontributory. SOCIAL HISTORY: No illicit drug use, smoking, or EtOH abuse. . REVIEW OF SYSTEMS: Fourteen-point review of systems is negative except as per the HPI. PHYSICAL EXAMINATION GENERAL: The patient is sitting up in bed, in no acute distress. VITAL SIGNS: Temperature 97.6, pulse rate 50, blood pressure 136/75, respiratory rate 16, oxygen saturation 95% by room air. HEENT: Atraumatic, normocephalic. PERRLA. Extraocular muscles intact. NECK: Supple. No JVD. No adenopathy noted. LUNGS: Clear to auscultation. No adventitious sounds. HEART: S1, S2. Normal rate and rhythm. No murmurs, rubs or gallops. ABDOMEN: Soft, nontender and nondistended. Bowel sounds are present. EXTREMITIES: No clubbing. No cyanosis. Peripheral pulses 2+ felt bilaterally. NEUROLOGIC: The patient is alert and oriented to person, place, month and year. Speech is fluent without any errors. Cranial nerves II through XII intact. Motor exam: Moves all extremities equally. Sensory exam: Light touch, pinprick, proprioception, and vibration are intact. DTRs are 2+ throughout. Coordination: [id number]-ytdr intact. Gait is fairly wide based, otherwise normal. LABORATORY DATA: No new labs done today. ASSESSMENT AND PLAN: 1. This is a 51--year-old -[place] woman with history of lupus, was in remission, history of multiple sclerosis, was on Ocrevus, hypertension, osteopenia, was admitted for multiple sclerosis, lupus exacerbation status post Solu-Medrol x2 days. Transferred to TCU for rehabilitation, muscle spasms. At this time, we will continue with physical therapy and she will follow up with me as an outpatient. She is stable for discharge tomorrow. 2. We will work on approval of her underlying Ocrevus for her disease, modifying agent for her multiple sclerosis. 3. Continue on Plaquenil 200 mg p.o. b.i.d. for underlying lupus. 4. Continue Lyrica 300 mg p.o. b.i.d. for neuropathic pain. 5. Zanaflex 4 mg p.o. b.i.d. for muscle spasms and will follow up me as an outpatient. Garry Cruz MD
[2017-10-05 17:14] VITALS: PULSE 72
--- NOTE | 2017-10-05 23:29 | PN ---
DATE: 10/05/2017 SUBJECTIVE: The patient was seen in room 302, bed 1. The patient was seen lying in the bed. The patient was advised to sit up in the bed and ambulate in the room, which the patient was able to do without any assistance and without any deficits. Overnight nurse's notes were reviewed. PHYSICAL EXAMINATION: VITAL SIGNS: T-max is 97.6, heart rate 72, blood pressure 129/88, respirations 18, O2 sat 99%. HEENT: Head examination normocephalic, atraumatic. HEENT examination shows pinkish pale conjunctivae, anicteric sclerae. No oropharyngeal lesion. No neck rigidity. CHEST: Symmetrical. LUNGS: Shows no rales, crackles or wheezing. CARDIOVASCULAR: S1 and S2. Regular rhythm. ABDOMEN: Soft, slightly protuberant. Positive bowel sound. GENITALIA: Female. RECTAL: Deferred. EXTREMITIES: Show no pitting edema, no calf tenderness, no Homans' sign. NEUROLOGICAL: The patient is alert, awake, oriented x3. Cranial nerves II through XII intact. Gait examination is independent. Plantars and downward. DTRs are 2+. VASCULAR: Palpable pulses. DIAGNOSTIC DATA: None. IMPRESSION AND PLAN: 1. Deconditioning. 2. Gait dysfunction. 3. History of multiple sclerosis and systemic lupus erythematosus. 4. Hypertension. 5. Mild normocytic anemia. 6. Granulocytosis. 7. Leukocytosis. 8. Elevated C-reactive protein of greater than 5. 9. Glycosuria. 10. Constipation. 11. Cecal and ascending colon fecal stasis and fecal retention. 12. Degenerative joint disease of the hips with spondylosis. 13. Uterine fibroid calcification. 14. Bilateral lower extremity pain and cramps. Plan at this time, the patient was seen by Neurology, their recommendations noted. The patient's current medications: Colace 100 mg three times a day, Dilaudid 0.5 mg IV every 8 p.r.n., Diovan 320 mg daily, Lovenox 30 mg subcu daily, Lyrica 200 twice a day, MiraLax 17 g twice a day, Plaquenil 200 twice a day, Protonix 40 mg daily, Tylenol 650 every 6 p.r.n, Zanaflex 4 mg daily, Zofran 4 mg IV every 4 p.r.n. The patient has been ordered out of bed to chair, thromboembolic disease stockings, sequential compression devices, physical therapy, occupational therapy, ambulation therapy ordered. The patient was seen by Neurology. The patient's Zanaflex will be increased to 4 mg twice a day from once a day because of the patient's complaint of muscle spasm. The patient at present will be continued with physical therapy, occupational therapy, ambulation therapy. The patient's case referred to Physical Therapy, Occupational Therapy. The patient's case also referred to Rn Telephonic. At present, the patient will be continued on the above therapeutic intervention. The patient will be continued on Transitional Care Unit with physical therapy, occupational therapy, ambulation therapy. The patient will be continued on Transitional Care Unit until approved number of days. The patient was advised to contact [facility] Teleph[facility] regarding her discharge planning, discharge options and discharge needs. Dictated and electronically signed, not read. Jace Moss MD
[2017-10-06] MEDS: HYDROmorphone 0.5 mg/0.5 ml ISec IVP PRN ×3 (00:16→20:47)
--- NOTE | 2017-10-06 05:28 | HP ---
HISTORY OF PRESENT ILLNESS: The patient is a 51-year-old female now transferred to TCU after patient was accepted and approved to Transitional Care Unit. Patient is seen in room 302, bed 1. Patient is comfortable. Overnight nurses' notes were reviewed. Patient was admitted to acute care floor from 10/01/2017 until 10/04/2017. Patient was accepted to TCU. Patient is now admitted to TCU in room 302. Patient is seen in room 302. Please refer to the history and physical examination and discharge summary from the hospitalization of 10/01 until 10/04/2017. PHYSICAL EXAMINATION: GENERAL: Patient is seen lying in the bed. VITAL SIGNS: T-max 97.6, heart rate 50, blood pressure 136/75, respirations 16, O2 sat 95%. HEENT: Head examination, normocephalic, atraumatic. HEENT examination shows pinkish conjunctivae. Anicteric sclerae. No oropharyngeal lesion. No neck rigidity. CHEST: Symmetrical. LUNGS: Shows no rales, crackles or wheezing. CARDIOVASCULAR: S1 and S2. Regular rhythm. No audible murmur, gallop, or rub. ABDOMEN: Slightly protuberant. No costovertebral angle tenderness noted. GENITALIA: Female. RECTAL: Deferred. EXTREMITIES: Show no pitting edema, no calf tenderness, no Homans' sign. MUSCULOSKELETAL: Shows a body mass index of 26.8. NEUROLOGIC: Motor strength is 5/5 in upper and lower extremity. Gait examination is independent. VASCULAR: Palpable pulses. ADMISSION IMPRESSION AND PLAN: 1. Gait dysfunction. 2. Deconditioning. 3. Possible acute exacerbation of multiple sclerosis versus acute exacerbation of systemic lupus erythematosus. 4. Status post intractable nausea, vomiting and abdominal pain (resolving). 5. Hypertension. 6. History of systemic lupus erythematosus. 7. Neuropathy. 8. Chronic pain syndrome. 9. Mild normocytic anemia. 10. Hypovitaminosis D. 11. Hypogammaglobinemia. 12. History of demyelinating disease of the brain and the cervical spine with history of multiple sclerosis. 13. History of tubal ligation. 14. History of osteopenia. 15. History of uterine ablation. 16. History of right ovarian cyst. 17. History of constipation. 18. Hypertension. 19. Gastroesophageal reflux with symptoms of heartburn. 20. Constipation, fecal retention, fecal stasis in the ascending and transverse colon. 21. Steroid-induced leukocytosis. 22. Gastritis. 23. Possible dilutional anemia. 24. Granulocytosis. 25. Steroid-induced hyperglycemia. 26. Elevated C-reactive protein of 5.16. 27. Glycosuria. 28. Cecal and ascending colon fecal retention. 29. Degenerative spondylosis of the hip joint. 30. Possible multiple sclerosis exacerbation with lupus exacerbation. PLAN: At this time, the patient is to be admitted to Transitional Care Unit. The patient will be ordered physical therapy, occupational therapy, ambulation therapy. The patient will be ordered Neurology consultation. CURRENT MEDICATIONS: Colace 100 mg 3 times a day, Dilaudid 0.5 mg IV every 6 hours p.r.n. which will be decreased to every 8 hours p.r.n. as patient is significantly pain-free at present and ambulating better. The patient is on valsartan, Diovan 320 mg daily, Lovenox 30 mg subcu daily, Lyrica 200 twice a day, MiraLax 17 g twice a day, Plaquenil 200 twice a day, Protonix 40 mg daily, Tylenol 650 every 6 hours p.r.n., Zanaflex 4 mg daily, Zofran 4 IV every 4 hours p.r.n.. Incentive spirometer, heart-healthy diet, out of bed, DUANE stockings, SCDs, physical therapy, occupational therapy, ambulation therapy ordered. The patient updated about her condition, diagnosis, test results at length. The patient was advised to discuss return to work, limitation, restriction and all return to work details with Neurology because patient needs and requires Neurology clearance for return back to work, which was extensively explained to the patient during this entire hospitalization on multiple occasions and even today. Dictated and electronically signed, not read. Jace Moss MD
[2017-10-06] MEDS: Pantoprazole 40 mg EC Tab PO SCH (06:16)
[2017-10-06] MEDS: Enoxaparin 30 mg Syringe SC SCH (06:16)
[2017-10-06] MEDS: POLYETHYLENE GLYCOL 3350 17 GM/Dose PACKET PO SCH ×2 (10:23→21:03)
--- NOTE | 2017-10-06 13:41 | PN ---
DATE: 10/06/2017 LOCATION: The patient is in [facility] in [place], room 302, bed 1. SUBJECTIVE: The patient was admitted to Transitional Care Unit for rehabilitation. The patient was admitted with muscle spasm and unstable gait due to that. The patient has past history of hypertension. The patient has history of muscle spasms in the past. The patient also gets treatment for hypertension. The patient is seen this morning. She seemed to be improved, but she still continues to have muscle relaxant and Dilaudid for pain. The patient has history of multiple sclerosis for the past about 17 years. The patient had been treated for it by neurologist. PHYSICAL EXAMINATION: VITAL SIGNS: This morning, the pulse is 72, blood pressure 129/88, respirations are 18, O2 sat is 99%, temperature 97.4. HEENT: The patient's head is normocephalic. NECK: The thyroid is not enlarged. Carotid pulses are present. HEART: Normal sinus rhythm. S1, S2 present. LUNGS: Examined. Trachea central. Breath sounds are vesicular. No adventitious sound. ABDOMEN: Soft. Liver and spleen not palpable. CENTRAL NERVOUS SYSTEM: The patient has no focal neurological deficits that can be elicited at this time, representing multiple sclerosis. The patient does not have any eye disorder. The patient has no tremors or ataxia that can be elicited. MEDICATIONS: Consist of Colace. The patient is on Dilaudid for pain. The patient is on Diovan for blood pressure, Lovenox for prevention of DVT, Lyrica 200 mg p.o. b.i.d. for muscle spasms and neuropathy. The patient also gets hydroxychloroquine, which is Plaquenil 200 mg for history of being treated for systemic lupus erythematosus. The patient is also on pantoprazole 40 mg for reflux. ASSESSMENT AND PLAN: The patient's condition is improving. She is advised to continue therapy. Wait further evaluation and consideration by the neurologist prior to being discharged, but she is actively being participating in physical therapy. Blood work is not currently present. The patient has had , which are not significantly abnormal. Victor Hugo Andrews MD [facility] # [id number]
[2017-10-07] MEDS: Enoxaparin 30 mg Syringe SC SCH (05:44)
[2017-10-07] MEDS: Pantoprazole 40 mg EC Tab PO SCH (05:44)
[2017-10-07 06:21] VITALS: BP 114/74; RESP 20; TEMP 98; O2SAT 95
--- NOTE | 2017-10-07 08:16 | PN ---
DATE: 10/07/2017 LOCATION: The patient is in [facility] Transitional Care Unit, room 302, bed 1. SUBJECTIVE: The patient was admitted with muscle spasm involving the right leg and inability to walk, intractable pain. Needed narcotic medication for control of pain. The patient was evaluated by Neurology. She has past history of multiple sclerosis and systemic lupus erythematosus. She was seen this morning. She is anxious to go home and she is clinically improved. She will be able to be discharged today. PHYSICAL EXAMINATION: VITAL SIGNS: The patient's pulse is 72, blood pressure 140/74, respirations are 20, O2 sat is 95% on room air, the patient's temperature 98. NEUROLOGICAL: There are no focal deficits are noted. The patient has longstanding multiple sclerosis, but she does not have sign. She does not have any neurological signs suggesting ataxia. She does not have any tremors. MEDICATIONS: The patient's medications consist of valsartan for blood pressure. The patient is on Lyrica 200 mg b.i.d. and the patient is on Plaquenil 200 mg b.i.d., pantoprazole 40 mg daily. ASSESSMENT AND PLAN: She will be discharged and continue her medications at home and follow up with Dr. Moss. She will be advised to make an appointment after 10/12/2017. Victor Hugo Andrews MD
== END 2017-10-07 10:09 | disposition home or self-care (01) | DRG 556 ==
LOC: TRCU 11:35
PROVIDERS: ADMIT Internal Medicine; ATTEND Internal Medicine
PROC: F07Z9ZZ Gait Training/Functional Ambulation Treatment (ICD-10-PCS; principal; 2017-10-06)
PROC: F07L6YZ Therapeutic Exercise Treatment of Musculoskeletal System - Lower Back / Lower Extremity using Other Equipment (ICD-10-PCS; 2017-10-06)
PROC: F07Z8ZZ Transfer Training Treatment (ICD-10-PCS; 2017-10-06)
PROC: F08Z4ZZ Home Management Treatment (ICD-10-PCS; 2017-10-06)
DX: R26.2 Difficulty in walking, not elsewhere classified (principal); G35 Multiple sclerosis; M32.9 Systemic lupus erythematosus, unspecified; G89.4 Chronic pain syndrome; G62.9 Polyneuropathy, unspecified; I10 Essential (primary) hypertension; D64.9 Anemia, unspecified; E55.9 Vitamin D deficiency, unspecified; N83.201 Unspecified ovarian cyst, right side; K29.70 Gastritis, unspecified, without bleeding; K59.00 Constipation, unspecified; D25.9 Leiomyoma of uterus, unspecified; K21.9 Gastro-esophageal reflux disease without esophagitis; M16.0 Bilateral primary osteoarthritis of hip; M85.80 Other specified disorders of bone density and structure, unspecified site; M47.9 Spondylosis, unspecified; Z87.891 Personal history of nicotine dependence

== ENCOUNTER 2017-12-27 23:02 | Emergency (ER) | payer OTHER ==
[2017-12-27 23:03] VITALS: BMI 26.8
[2017-12-27] MEDS ORDERED: DiphenhydrAMINE 50 mg/ml Inj IVP STA (23:55)
[2017-12-27] MEDS ORDERED: Sodium Chloride 0.9% 1,000 ML IV STA (23:55)
[2017-12-28 00:39] LABS: BASO # 0.11 K/mm3 (0.0-2.0); EOS # 0.3 (0.0-0.7); EOS % 2.6 % (1.5-5.0); GRAN # 3.95 (1.4-6.5); GRAN % 37.6 % (50.0-68.0); HEMOGLOBIN 11.7 g/dL (12.0-16.0); LYMPH # 5.5 (1.2-3.4); MEAN CELL VOLUME 87.7 fl (80.0-105.0); MEAN CORPUSCULAR HEMOGLOBIN 27.7 pg (25.0-35.0); MEAN CORPUSCULAR HGB CONC 31.6 g/dl (31.0-37.0); MEAN PLATELET VOLUME 12.4 fl (7.0-11.0); MONO # 0.7 (0.1-0.6); MONO % 6.8 % (1.0-6.0); RBC 4.22 10^6/uL (3.5-6.1); RED CELL DISTRIBUTION WIDTH 14.1 % (11.5-14.5)
[2017-12-28 00:41] LABS: ALB/GLOB RATIO 1.5 (1.1-1.8); ALBUMIN 4.4 g/dL (3.0-4.8); ALT/SGPT 24 U/L (7-56); AST/SGOT 27 U/L (14-36); BLOOD UREA NITROGEN 13 mg/dL (7-21); CALCIUM 9.8 mg/dL (8.4-10.5); GFR NON-AFRICAN AMERICAN > 60
[2017-12-28 00:42] LABS: WHITE BLOOD COUNT 10.5 10^3/ul (4.5-11.0)
--- NOTE | 2017-12-28 00:44 | ED PDOC ---
Arrival/HPI <Preet Buchanan - Last Filed: 12/28/17 00:54> - General Historian: Patient - History of Present Illness Time/Duration: Other (today) Symptom Onset: Sudden Symptom Course: Worsening Activities at Onset: Light Context: Work <Rachel Richards PA-C - Last Filed: 12/28/17 23:28> - General Chief Complaint: Headache Time Seen by Provider: 12/27/17 23:44 - History of Present Illness Narrative History of Present Illness (Text): 12/27/17 23:50 52 year old female, whose past medical history includes MS, lupus, hypertension, and osteopenia, presents to the emergency department complaining of headache that began today. Earlier today, patient coming to work with mild headache and upon arrival to work patient started realizing the headache becoming more intense. Patient describes it as a pressure constant pain to the top left-side of the head associated with nausea, vomiting, and sensitivity to light. Patient states the pain is worse when she lays down. She never had this before and denies any history of migraines, URI, or any recent illness. Patient took Motrin which she immediately vomited, with no relief of her headache. Patient denies any fever, chills, dizziness, trauma, injury, syncope, chest pain, shortness of breath, diarrhea, urinary symptoms, back pain, neck pain, or any other complaints. PMD: Dr. Moss Neurologist: Dr. Cruz Fruit Thinner Machine Operator: Dr. Boggs (Rachel Richards PA-C) Past Medical History - Provider Review Nursing Documentation Reviewed: Yes - Past History Past History: Non-Contributing - Infectious Disease Hx of Infectious Diseases: None - Reproductive Menopause: Yes - Cardiac Hx Hypertension: Yes - Pulmonary Hx Respiratory Disorders: No - Neurological Hx Dizziness: Yes - HEENT Hx HEENT Disorder: No - Renal Hx Renal Disorder: No - Endocrine/Metabolic Hx Systemic Lupus Erythematosus: Yes - Hematological/Oncological Hx Blood Disorders: No - Integumentary Hx Dermatological Disorder: No - Musculoskeletal/Rheumatological Hx Arthritis: Yes (OA) - Gastrointestinal Hx Gastrointestinal Disorders: No - Genitourinary/Gynecological Hx Genitourinary Disorders: No - Psychiatric Hx Psychophysiologic Disorder: No Hx Substance Use: No - Surgical History Other/Comment: Uterine Artery sx. Hemaroids - Anesthesia Hx Anesthesia: Yes Hx Anesthesia Reactions: No Hx Malignant Hyperthermia: No <Rachel Richards PA-C - Last Filed: 12/28/17 23:28> Family/Social History - Physician Review Nursing Documentation Reviewed: Yes Family/Social History: No Known Family HX Smoking Status: Light Smoker < 10 Cigarettes Daily Hx Alcohol Use: No Hx Substance Use: No Hx Substance Use Treatment: No <Rachel Richards PA-C - Last Filed: 12/28/17 23:28> Allergies/Home Meds <Preet Buchanan - Last Filed: 12/28/17 00:54> <Rachel Richards PA-C - Last Filed: 12/28/17 23:28> Allergies/Adverse Reactions: Allergies No Known Allergies Allergy (Verified 12/27/17 23:18) Home Medications: Home Meds Medication Instructions Recorded Confirmed Hydroxychloroquine Sulfate 200 mg PO BID 05/17/17 12/27/17 [Plaquenil] Pregabalin [Lyrica] 200 mg PO BID 05/17/17 12/27/17 Valsartan/Hydrochlorothiazide 300 mg PO DAILY 05/17/17 12/27/17 [Diovan Hct 320-25 mg Tablet] tiZANidine [Zanaflex] 4 mg PO DAILY 05/17/17 12/27/17 Review of Systems - Physician Review All systems were reviewed & negative as marked: Yes - Review of Systems Constitutional: absent: Fevers, Other (Chills) Eyes: Photophobia Respiratory: absent: SOB Cardiovascular: absent: Chest Pain Gastrointestinal: Nausea, Vomiting. absent: Diarrhea Genitourinary Female: absent: Dysuria, Frequency, Hematuria Musculoskeletal: absent: Back Pain, Neck Pain Neurological: Headache. absent: Dizziness <Rachel Richards PA-C - Last Filed: 12/28/17 23:28> Physical Exam Vital Signs Reviewed: Yes Temperature: Afebrile Blood Pressure: Normal Pulse: Regular Respiratory Rate: Normal Appearance: Positive for: Well-Appearing, Non-Toxic, Comfortable Pain Distress: Mild Mental Status: Positive for: Alert and Oriented X 3 - Systems Exam Head: Present: Atraumatic, Normocephalic Pupils: Present: PERRL Extroacular Muscles: Present: EOMI Conjunctiva: Present: Normal Mouth: Present: Moist Mucous Membranes Neck: Present: Normal Range of Motion. No: Meningeal Signs, Lymphadenopathy Respiratory/Chest: Present: Clear to Auscultation, Good Air Exchange. No: Respiratory Distress, Accessory Muscle Use Cardiovascular: Present: Regular Rate and Rhythm, Normal S1, S2. No: Murmurs Abdomen: No: Tenderness, Distention, Peritoneal Signs Back: Present: Normal Inspection Upper Extremity: Present: Normal Inspection, Normal ROM, NORMAL PULSES. No: Cyanosis, Edema Lower Extremity: Present: Normal Inspection, NORMAL PULSES, Normal ROM. No: Edema Neurological: Present: GCS=15, CN II-XII Intact, Speech Normal, Motor Func Latoya ssly Intact, Normal Sensory Function, Gait Normal Skin: Present: Warm, Dry, Normal Color. No: Rashes Psychiatric: Present: Alert, Oriented x 3, Normal Insight, Normal Concentration <Rachel Richards PA-C - Last Filed: 12/28/17 23:28> Vital Signs Temp Pulse Resp BP Pulse Ox 12/28/17 01:38 98.3 F 84 17 131/80 97 12/27/17 23:18 98.6 F 91 H 18 121/70 100 Medical Decision Making <Preet Buchanan - Last Filed: 12/28/17 00:54> - Lab Interpretations I have reviewed the lab results: Yes <Rachel Richards PA-C - Last Filed: 12/28/17 23:28> ED Course and Treatment: 12/27/17 23:50 Impression: 52 year old female presents complaining of worsening headache to the top left side of the her head associated with nausea, vomiting, and photophobia. Plan: -- CT Head w/o Contrast -- Labs -- Benadryl, Reglan, IV Fluids -- POC Urine Test -- Reassess and disposition Prior Visits: Notes and results from previous visits were reviewed. Progress Notes: Labs reviewed and wnl. 12/28/17 01:14 CT head : FINDINGS: Brain: No hemorrhage. Mild periventricular microischemic changes. No edema. Ventricles: Appropriate for patient's age. Bones/joints: No acute fracture. Soft tissues: No radiopaque foreign body. Sinuses: No acute sinusitis. Mastoid air cells: No mastoid effusion. Retro-orbital fat herniation into a left ethmoid air cells stable previous MRI exam. IMPRESSION: No acute CT intracranial abnormalities. Dictated and Authenticated by: Raul Valderrama MD 12/28/2017 1:02 AM Eastern Time ([place] & [place]) On reevaluation, patient reports improvement of symptoms, still c/o a mild headache, denies any dizziness, neck pain or fever. On exam, patient remains aw sanjiv alert and oriented 3 in no acute distress. Neck is supple, repeat neuro exam shows no focal findings. Diagnostic results d/w the patient, diagnosis of possible migraine headache d/w the patient. Given toradol 30 mg IV. Advised to follow up with primary care physician in 1-2 days without fail. Advised to take medication as prescribed. Return to the emergency room at any time for any new or worsening symptoms. Patient states she fully agrees with and understands discharge instructions. States that she agrees with the plan and disposition. Verbalized and repeated discharge instructions and plan. I have given the patient opportunity to ask any additional questions. (Maurice CHA,Rachel Clayton) - Lab Interpretations Lab Results: 12/28/17 00:15 12/28/17 00:15 Lab Results 12/28/17 00:15: Sodium 145, Potassium 4.0, Chloride 109 H, Carbon Dioxide 28, Anion Gap 12, BUN 13, Creatinine 0.7, Est GFR ( Amer) > 60, Est GFR (Non- Af Amer) > 60, Random Glucose 96, Calcium 9.8, Total Bilirubin 0.4, AST 27, ALT 24, Alkaline Phosphatase 139 H D, Total Protein 7.4, Albumin 4.4, Globulin 3.0, Albumin/Globulin Ratio 1.5 12/28/17 00:15: WBC 10.5 D, RBC 4.22, Hgb 11.7 L, Hct 37.0, MCV 87.7, MCH 27.7, MCHC 31.6, RDW 14.1, Plt Count 314, MPV 12.4 H, Gran % 37.6 L, Lymph % (Auto) 52.0 H, [place] % (Auto) 6.8 H, Eos % (Auto) 2.6, Baso % (Auto) 1.0, Gran # 3.95, Lymph # (Auto) 5.5 H, [place] # (Auto) 0.7 H, Eos # (Auto) 0.3, Baso # (Auto) 0.11 - RAD Interpretation Radiology Orders: 12/27/17 23:56 HEAD W/O CONTRAST [CT] Stat - Medication Orders Current Medication Orders: Discontinued Medications Diphenhydramine HCl (Benadryl) 25 mg IVP STAT STA Stop: 12/27/17 23:56 Last Admin: 12/28/17 00:13 Dose: 25 mg IVP Administration Document 12/28/17 00:13 GISELA (Rec: 12/28/17 00:13 Fareed [id number]) Charges for Administration # of IVP Administrations 1 Sodium Chloride (Sodium Chloride 0.9%) 1,000 mls @ 1,000 mls/hr IV .Q1H STA Stop: 12/28/17 00:54 Last Admin: 12/28/17 00:13 Dose: 1,000 mls/hr eMAR Start Stop Document 12/28/17 00:13 GISELA (Rec: 12/28/17 00:13 Fareed [id number]) Intravenous Solution Start Date 12/28/17 Start Time 00:13 End Date 12/28/17 End time 01:50 Total Infusion Time 97 Ketorolac Tromethamine (Toradol) 30 mg IVP STAT STA Stop: 12/28/17 01:18 Last Admin: 12/28/17 01:34 Dose: 30 mg MAR Pain Assessment Document 12/28/17 01:34 GISELA (Rec: 12/28/17 01:38 Fareed [id number]) Pain Reassessment Is this a pain reassessment? No Sleep Is patient sleeping during reassessment? No Presence of Pain Presence of Pain Yes Pain Scale Used Pain Scale Used Numeric Location Pain Location Body Immunologist Description Description Throbbing Intensity of Pain at present 3 Acceptable Level of Pain 0 Pain Behavior Rubbing Site Aggravating Factors ADL's IVP Administration Document 12/28/17 01:34 GISELA (Rec: 12/28/17 01:38 Fareed [id number]) Charges for Administration # of IVP Administrations 1 Metoclopramide HCl (Reglan) 10 mg IVP STAT STA Stop: 12/27/17 23:56 Last Admin: 12/28/17 00:14 Dose: 10 mg IVP Administration Document 12/28/17 00:14 GISELA (Rec: 12/28/17 00:14 Fareed [id number]) Charges for Administration # of IVP Administrations 1 - PA / TECHNICAL INSTRUCTOR / Resident Statement BUDDY has reviewed & agrees with the documentation as recorded. BUDDY has examined the patient and agrees with the treatment plan. <Preet Buchanan - Last Filed: 12/28/17 00:54> - PA / TECHNICAL INSTRUCTOR / Resident Statement / has reviewed & agrees with the documentation as recorded. - Scribe Statement The provider has reviewed the documentation as recorded by the Scribe <Rachel Richards PA-C - Last Filed: 12/28/17 23:28> - Scribe Statement Jose Roberto Gottlieb Provider Scribe Attestation: All medical record entries made by the Scribe were at my direction and personally dictated by me. I have reviewed the chart and agree that the record accurately reflects my personal performance of the history, physical exam, me dical decision making, and the department course for this patient. I have also personally directed, reviewed, and agree with the discharge instructions and disposition. (Rachel Richards PA-C) Disposition/Present on Arrival <DewaynePreet - Last Filed: 12/28/17 00:54> - Present on Arrival Any Indicators Present on Arrival: No History of DVT/PE: No History of Uncontrolled Diabetes: No Urinary Catheter: No History of Decub. Ulcer: No History Surgical Site Infection Following: None - Disposition Have Diagnosis and Disposition been Completed?: Yes Disposition Time: 02:00 Patient Plan: Discharge <Rachel Richards PA-C - Last Filed: 12/28/17 23:28> - Disposition Diagnosis: Headache Disposition: HOME/ ROUTINE Condition: STABLE Discharge Instructions (ExitCare): Migraine Headache (DC) Additional Instructions: Thank you for letting us take care of you today. You were treated for headache. The emergency medical care you received today was directed at your acute symptoms. If you were prescribed any medication, please fill it and take as directed. It may take several days for your symptoms to resolve. Return to the Emergency Department if your symptoms worsen, do not improve, or if you have any other problems. Please contact your doctor in 2 days for re-evaluation and follow up. Bring any paperwork you were given at discharge with you along with any medications you are taking to your follow up visit. Our treatment cannot replace ongoing medical care by a primary care provider (PCP) outside of the emergency department. Thank you for allowing the [facility] team to be part of your care today. If you had a CT scan: A Radiologist will review the ED reading if any change in treatment is needed we will contact you. Prescriptions: Metoclopramide HCl [Reglan] 10 mg PO QID PRN #20 tablet PRN Reason: Headache Naproxen 500 mg PO BID PRN #20 tablet PRN Reason: Pain, Moderate (4-7) Referrals: Jace Moss MD [Primary Care Provider] - Follow up with primary Forms: [employer] ([place]), WORK NOTE
--- NOTE | 2017-12-28 01:02 | CT ---
EXAM: CT Head Without Intravenous Contrast CLINICAL HISTORY: 52 years old, female; Pain; Headache; Headache not specified TECHNIQUE: Axial computed tomography images of the head/brain without intravenous contrast. All CT scans at this facility use at least one of these dose optimization techniques: automated exposure control; mA and/or kV adjustment per patient size (includes targeted exams where dose is matched to clinical indication); or iterative reconstruction. Coronal and sagittal reformatted images were created and reviewed. COMPARISON: MR BRAIN W WO CONTRAST 08/02/2017 11:26 AM FINDINGS: Brain: No hemorrhage. Mild periventricular microischemic changes. No edema. Ventricles: Appropriate for patient's age. Bones/joints: No acute fracture. Soft tissues: No radiopaque foreign body. Sinuses: No acute sinusitis. Mastoid air cells: No mastoid effusion. Retro-orbital fat herniation into a left ethmoid air cells stable previous MRI exam. IMPRESSION: No acute CT intracranial abnormalities.
[2017-12-28 01:39] VITALS: BP 131/80; PULSE 84; RESP 17; TEMP 98.3; O2SAT 97
== END 2017-12-28 01:50 | disposition home or self-care (01) ==
LOC: ED 23:02
DX: R51 Headache (principal); I10 Essential (primary) hypertension; M32.9 Systemic lupus erythematosus, unspecified; F17.210 Nicotine dependence, cigarettes, uncomplicated
CPT/HCPCS: 70450; 80053; 85025; 96361; 96374; 96375; 99284; J1200; J1885; J2765; J7030